=== PATIENT | female | born 1950 | race Caucasian/White ===

== ENCOUNTER 2016-10-21 16:40 | Inpatient (IN) ==
[2016-10-21] MEDS ORDERED: Naloxone 0.4 MG/ML INJ IVP PRN (17:18)
[2016-10-21] MEDS ORDERED: *HR* Metoprolol 5 MG/5 ML VIAL IVP PRN (17:18)
[2016-10-21] MEDS ORDERED: Ondansetron 4 MG/2 ML VIAL IVP PRN (17:18)
[2016-10-21] MEDS ORDERED: *HR* Promethazine 25 MG/ML VIAL IVP PRN (17:18)
[2016-10-21 18:30] LABS: Basophils % 0.3 %; Eosinophils # 0.1 K/mcL (0.0-0.6); Hematocrit 33.4 % (35.3-44.9); Hemoglobin 10.9 g/dL (11.5-15.4); Immature Granulocytes % 0.4 % (0-4); Lymphocytes # 0.9 K/mcL (0.6-4.6); Lymphocytes % 13.5 %; Mean Corpuscular HGB Conc 32.6 g/dL (31.6-35.5); Mean Corpuscular Hemoglobin 25.8 pg (28.0-33.3); Mean Corpuscular Volume 79.1 fL (83.0-100.0); Mean Platelet Volume 9.3 fL (9.4-12.4); Monocytes # 1.2 K/mcL (0.0-1.3); Neutrophils # 4.6 K/mcL (1.6-8.9); Platelet Count 287 K/mcL (140-400); Red Blood Count 4.22 M/mcL (3.82-4.97); Red Cell Distribution Width 13.8 % (11.5-14.5); Segmented Neutrophils % 67.8 %
[2016-10-21 18:37] LABS: INR 1.4; Prothrombin Time 14.8 Seconds (9.4-12.1)
[2016-10-21 18:42] LABS: Alanine Aminotransferase 20 Units/L (0-55); Albumin 2.9 g/dL (3.5-5.0); Albumin/Globulin Ratio 0.7 (1.1-2.2); Alkaline Phosphatase 98 Units/L (38-126); Aspartate Amino Transferase 31 Units/L (5-34); BUN/Creatinine Ratio 12 (6-26); Bilirubin,Direct 0.3 mg/dL (0.0-0.5); Bilirubin,Indirect 0.4 mg/dL (0.0-1.2); Bilirubin,Total 0.7 mg/dL (0.2-1.2); Blood Urea Nitrogen 9 mg/dL (7-20); Calcium 9.2 mg/dL (8.6-10.8); Carbon Dioxide 23 mEq/L (19-29); Chloride 97 mEq/L (98-109); Globulin 4.1 g/dL (2.4-3.5); Glucose 105 mg/dL (70-99); Magnesium 1.8 mg/dL (1.6-2.6); Osmolality,Calculated 273 (280-300); Phosphorous 4.1 mg/dL (2.3-4.7); Potassium 4.4 mEq/L (3.5-4.5); Sodium 132 mEq/L (136-145); eGFR For African Americans > 60 (> 60); eGFR For Non-African Americans > 60 (> 60)
[2016-10-21] MEDS: 0.9 % Sodium Chloride 1,000 ML IVC SCH (19:31)
[2016-10-21] MEDS: Piperacillin/Tazobactam 3.375 GM in D5% in Water (Mini-Bag+) 100 ML IVPB SCH (19:33)
[2016-10-21] MEDS: *HR* Morphine 2 MG/ML SYRINGE IVP PRN (21:52)
[2016-10-22] MEDS ORDERED: Piperacillin/Tazobactam 3.375 GM in D5% in Water (Mini-Bag+) 100 ML IVPB SCH
[2016-10-22] MEDS: Piperacillin/Tazobactam 3.375 GM in D5% in Water (Mini-Bag+) 100 ML IVPB SCH ×3 (05:42→17:09)
[2016-10-22] MEDS: Pantoprazole 40 MG VIAL IVP SCH (07:23)
--- NOTE | 2016-10-22 09:41 | Event Note ---
Date of Encounter: 10/22/16 Time of Encounter: 09:38 H&P completed in eCW on 10/21/16. A copy can be found at the nurses station in patient's file.
[2016-10-22] MEDS ORDERED: *HR* FentaNYL (PF) 100 MCG/2 ML VIAL IV PRN (10:00)
[2016-10-22] MEDS ORDERED: *HR* Midazolam HCl 2 MG/2 ML VIAL IV PRN (10:00)
--- NOTE | 2016-10-22 10:00 | Pre-Sedation Evaluation ---
Pre-sedation evaluation - Pre-sedation checklist Recent Vitals: Last Vital Signs Temp 98.4 F 10/22/16 07:56 Pulse 67 10/22/16 07:56 Resp 18 10/22/16 07:56 BP 110/70 10/22/16 07:56 Pulse Ox 94 L 10/22/16 07:56 Airway Assessment: Patient can open mouth completely, TMJ function normal, Micrognathia (under-bite, receding chin) absent, Neck with adequate range of motion Dentition: No loose teeth or bridges Possible difficult airway: No ASA Classification *see protocol: CLASS II-Mild systemic disease Plan of Care: Pt appropriate candidate for procedure/moderate/conscious sedation , Risks/benefits of procedure/sedation discussed w/ patient/family
[2016-10-22] MEDS ORDERED: 0.9 % Sodium Chloride 500 ML ONE (10:10)
[2016-10-22] MEDS: Metoprolol XL (24 HR) Succ 50 MG TAB.ER.24H PO SCH (11:35)
[2016-10-22] MEDS ORDERED: Polyethylene Glycol 3350 255 GM POWDER PO ONE (12:57)
--- NOTE | 2016-10-22 13:15 | General Surgery Progress Note ---
Date of Encounter: 10/22/16 Time of Encounter: 12:15 - Assessment and Plan (1) RLQ abdominal pain Current Visit: Yes Status: Acute s/p Repeat CT with rectal contrast IR drainage of intra-abdominal fluid collection IV antibiotics- Zosyn Clear liquids today and NPO after midnight Plan for bowel prep starting now and colonoscopy 10/23/[address] Carbajal Supportive care/pain control IV fluids (2) Intra-abdominal fluid collection Current Visit: Yes Status: Acute s/p IR drainage of intra-abdominal fluid collection Continue CAT drain Cultures pending IV antibiotics- Zosyn (3) Adrenal abnormality Current Visit: Yes Status: Acute enlarged and nodular left adrenal gland on CT- recommended f/u MRI (4) Hypertension Current Visit: Yes Status: Chronic Normotensive Continue home regimen Will continue to monitor and adjust as necessary Qualifiers: Hypertension type: essential hypertension Qualified Code(s): I10 - Essential (primary) hypertension (5) Hyperlipidemia Current Visit: Yes Status: Chronic Qualifiers: Hyperlipidemia type: unspecified Qualified Code(s): E78.5 - Hyperlipidemia , unspecified (6) Hypothyroidism Current Visit: Yes Status: Chronic Continue home doseage of levothyroxine Qualifiers: Hypothyroidism type: unspecified Qualified Code(s): E03.9 - Hypothyroidism , unspecified (7) DVT prophylaxis Current Visit: Yes Status: Acute Ambulate TID with assistance EPCDs to bilateral lower extremities for DVT prophylaxis Subjective Patient reports: no new complaints, feels better, still having pain, pain is less, voiding w/o difficulty, flatus, bowel movement, afebrile Objective Vital Signs - Last 8 Hours Temp Pulse Resp BP Pulse Ox 10/22/16 11:46 98.3 F 62 20 97/43 92 L 10/22/16 11:30 98 F 78 20 107/42 99 10/22/16 07:56 98.4 F 67 18 110/70 94 L Intake and Output 10/21/16 10/22/16 10/22/16 23:59 07:59 15:59 Intake Total 100 / 100 400 / 400 Output Total 500 / 500 1200 / 1200 Balance -400 / -400 -800 / -800 Intake: IV Fluids 100 / 100 100 / 100 Zosyn 3.375 GM In 100 / 100 100 / 100 Dextrose 5% (Minibag+) 100 ML 100 ML @ 25 mls/hr IVPB Q8H ZHANG Rx#: [id number] Oral 300 / 300 Output: Urine 500 / 500 1200 / 1200 Other: Meal npo # Voids 1 Weight 76.4 kg Patient Weight 10/22/16 23:59 Weight 76.4 kg - General physical appearance well developed, well nourished, no distress - Eyes normal ocular movement - ENT normal mucosa, atraumatic, normocephalic - Neck Neck exam: trachea midline - Respiratory normal expansion, normal respiratory effort, clear to auscultation - Cardiovascular Cardiovascular exam: Present: RRR - Abdomen Abdomen: Present: bowel sounds present, soft, tender (mildly ), wound (Pigtail drain with serous drainage noted) Abdominal Tenderness: RLQ - Neurologic CN 2-12 grossly intact - Musculoskeletal normal gait, normal posture - Psychiatric oriented to time, oriented to person, oriented to place, speech is normal, memory intact - Labs 10/21/16 18:13 10/21/16 18:13 Diabetes panel 10/21/16 Range/Units 18:13 Sodium 132 L (136-145) mEq/L Potassium 4.4 (3.5-4.5) mEq/L Chloride 97 L (98-109) mEq/L Carbon Dioxide 23 (19-29) mEq/L BUN 9 (7-20) mg/dL Creatinine 0.75 (0.57-1.11) mg/dL Glucose 105 H (70-99) mg/dL Calcium 9.2 (8.6-10.8) mg/dL AST 31 (5-34) Units/L ALT 20 (0-55) Units/L Alkaline Phosphatase 98 (38-126) Units/L Albumin 2.9 L (3.5-5.0) g/dL Calcium panel 10/21/16 Range/Units 18:13 Calcium 9.2 (8.6-10.8) mg/dL Phosphorus 4.1 (2.3-4.7) mg/dL Albumin 2.9 L (3.5-5.0) g/dL Pituitary panel 10/21/16 Range/Units 18:13 Sodium 132 L (136-145) mEq/L Potassium 4.4 (3.5-4.5) mEq/L Chloride 97 L (98-109) mEq/L Carbon Dioxide 23 (19-29) mEq/L BUN 9 (7-20) mg/dL Creatinine 0.75 (0.57-1.11) mg/dL Glucose 105 H (70-99) mg/dL Calcium 9.2 (8.6-10.8) mg/dL Adrenal panel 10/21/16 Range/Units 18:13 Sodium 132 L (136-145) mEq/L Potassium 4.4 (3.5-4.5) mEq/L Chloride 97 L (98-109) mEq/L Carbon Dioxide 23 (19-29) mEq/L BUN 9 (7-20) mg/dL Creatinine 0.75 (0.57-1.11) mg/dL Glucose 105 H (70-99) mg/dL Calcium 9.2 (8.6-10.8) mg/dL Total Bilirubin 0.7 (0.2-1.2) mg/dL AST 31 (5-34) Units/L ALT 20 (0-55) Units/L Alkaline Phosphatase 98 (38-126) Units/L Albumin 2.9 L (3.5-5.0) g/dL Consult Discharge Plan - Plan Referrals: Samuel Mary DO [Partnered Physician] -
[2016-10-22 14:24] LABS: Amylase 25 Units/L (25-125); Lipase 12 Units/L (8-78)
[2016-10-22] MEDS: *HR* Morphine 2 MG/ML SYRINGE IVP PRN (14:57)
[2016-10-23] MEDS: 0.9 % Sodium Chloride 1,000 ML IVC SCH ×2 (01:58→15:57)
[2016-10-23] MEDS: Piperacillin/Tazobactam 3.375 GM in D5% in Water (Mini-Bag+) 100 ML IVPB SCH ×3 (01:58→18:01)
[2016-10-23 05:14] LABS: Basophils % 0.3 %; Eosinophils % 0.5 %; Hematocrit 30.9 % (35.3-44.9); Hemoglobin 10.3 g/dL (11.5-15.4); Immature Granulocytes % 0.5 % (0-4); Lymphocytes % 17.3 %; Mean Corpuscular HGB Conc 33.3 g/dL (31.6-35.5); Mean Corpuscular Hemoglobin 26.1 pg (28.0-33.3); Mean Corpuscular Volume 78.4 fL (83.0-100.0); Mean Platelet Volume 9.5 fL (9.4-12.4); Monocytes % 14.3 %; Platelet Count 262 K/mcL (140-400); Red Blood Count 3.94 M/mcL (3.82-4.97); Red Cell Distribution Width 13.8 % (11.5-14.5); Segmented Neutrophils % 67.1 %
[2016-10-23 05:15] LABS: Lymphocytes # 1.1 K/mcL (0.6-4.6); Monocytes # 0.9 K/mcL (0.0-1.3); Neutrophils # 4.4 K/mcL (1.6-8.9)
[2016-10-23 05:35] LABS: BUN/Creatinine Ratio 7 (6-26); Calcium 8.8 mg/dL (8.6-10.8); Carbon Dioxide 25 mEq/L (19-29); Chloride 102 mEq/L (98-109); Glucose 133 mg/dL (70-99); Osmolality,Calculated 279 (280-300); Potassium 3.4 mEq/L (3.5-4.5); Sodium 135 mEq/L (136-145); eGFR For African Americans > 60 (> 60); eGFR For Non-African Americans > 60 (> 60)
[2016-10-23 05:41] LABS: Blood Urea Nitrogen 4 mg/dL (7-20)
[2016-10-23 05:43] LABS: Platelet Estimate Normal (Normal); Reactive Lymphocytes Present (Not Present)
[2016-10-23] MEDS: Pantoprazole 40 MG VIAL IVP SCH (10:28)
[2016-10-23] MEDS: Metoprolol XL (24 HR) Succ 50 MG TAB.ER.24H PO SCH (10:28)
--- NOTE | 2016-10-23 14:10 | Discharge Summary ---
Date of Encounter: 10/23/16 Time of Encounter: 14:00 - Discharge Diagnosis (1) RLQ abdominal pain Priority: Primary Status: Resolved (2) Intra-abdominal fluid collection Priority: Primary Status: Resolved (3) Adrenal abnormality Priority: Secondary Status: Chronic (4) Hypertension Priority: Secondary Status: Chronic Qualifiers: Hypertension type: essential hypertension Qualified Code(s): I10 - Essential (primary) hypertension (5) Hyperlipidemia Priority: Secondary Status: Chronic Qualifiers: Hyperlipidemia type: unspecified Qualified Code(s): E78.5 - Hyperlipidemia , unspecified (6) Hypothyroidism Priority: Secondary Status: Chronic Qualifiers: Hypothyroidism type: unspecified Qualified Code(s): E03.9 - Hypothyroidism , unspecified (7) DVT prophylaxis Priority: Secondary Status: Acute - Discharge Medications Home Medications: Levothyroxine [Synthroid] 88 mcg PO DAILY 10/21/16 [History] Losartan Potassium [Cozaar] 50 mg PO DAILY 10/21/16 [History] Metoprolol Succinate 100 mg PO DAILY 10/21/16 [History] Simvastatin [Zocor] 40 mg PO HS 10/21/16 [History] Allergies/Adverse Reactions: Allergies Sulfa (Sulfonamide Antibiotics) Allergy (Verified 10/21/16 18:29) Swelling of Lip/Tongue/Throat General Surgery Exam Initial Vital Signs Temp Pulse Resp BP Pulse Ox 99.4 F 71 14 108/62 98 10/21/16 19:39 10/21/16 19:39 10/21/16 19:39 10/21/16 19:39 10/21/16 19:39 - General physical appearance well developed, well nourished, no distress, no pain - Eyes normal ocular movement - ENT normal mucosa, atraumatic, normocephalic - Neck trachea midline - Respiratory normal expansion, normal respiratory effort, clear to auscultation - Cardiovascular Cardiovascular exam: Present: RRR, 15, 16 - Abdomen Abdomen general surgery: Present: bowel sounds present, soft, non tender, wound (Pigtail drain with serous drainage noted) - Neurologic Present: CN 2-12 grossly intact - Musculoskeletal Present: normal gait, normal posture - Psychiatric Psychiatric general surgery: Present: appropriate, oriented to person, oriented to place, oriented to time, speech is normal, memory intact Date of admission: 10/22/16 10:18 Primary care physician: Samuel Mary DO Consults: 10/21/16 17:21 Consult to Interventional Radiology [CONS] Routine Consulting Provider: Radiology Interventional Cols Reason for Consult: intra-abdominal abscesses Call Completed: No Discharging clinician: Tracie Carbajal ([facility]) Anticipated date of discharge: 10/24/16 - Patient Status Disposition: Home, Self-Care Condition: Good Functional capacity at discharge: independent ambulation Overall status at discharge: patient is progressing back to baseline - Discharge Instructions Follow Up With: Tracie Carbajal MD [Partnered Physician] - 11/04/16 1:50 pm (hospital follow- up) Samuel Mary DO [Primary Care Provider] - (1-2 weeks; patient will need follow-up MRI to further evaluate the left adrenal gland) Additional Instructions: 1 Pigtail drain- cleanse around drain with soap and water, pat dry daily; apply split 4X4 gauze and tape to secure daily. Empty drain 2 times daily and as needed if full and record outputs (ml/cc) and bring drain record to follow-up appointment on 11/04/[address] Carbajal 2 February shower, no tub bath - Diet and Activity Activity: increase activity as tolerated Diet: advance to your usual diet - Hospital Course Hospital course: Ms. Strickland is a 66 year old female direct admitted from the outpatient surgical office for RLQ pain. CT scan showed evidence of an intra-abdominal fluid collection. Interventional radiology was consulted for IR drainage of the fluid. The fluid was sent for culture. The patient was placed on empiric IV antibiotics (Zosyn). Her symptoms have significantly improved with drainage of the fluid collection (serous drainage noted). The patient was prepped for a colonoscopy for further evaluation of the colon. We will advance the patients diet as tolerated as colonoscopy complete. Cultures showed no growth from the intra-abdominal fluid. Plan for discharge to home with drain in place likely in the next 24 hours. Plan for outpatient follow-up with Dr. Carbajal in the next 10- 14 days. - Time Spent with Patient Total time spent providing and/or coordinating discharge services: Less than 30 minutes Labs on day of discharge: Labs from last 24 hours 10/23/16 10/23/16 10/23/16 11:32 05:44 04:30 WBC RBC Hgb Hct MCV MCH MCHC RDW Plt Count MPV Immature Gran % Seg Neutrophils % Lymphocytes % Monocytes % Eosinophils % Basophils % Neutrophils # Lymphocytes # Monocytes # Eosinophils # Basophils # Reactive Lymphocytes Platelet Estimate Sodium 135 L Potassium 3.4 L D Chloride 102 Carbon Dioxide 25 BUN 4 L Creatinine 0.59 Est GFR ( Amer) > 60 Est GFR (Non-Af Amer) > 60 BUN/Creatinine Ratio 7 Glucose 133 H POC Glucose 107 H 128 H Calculated Osmolality 279 L Calcium 8.8 Amylase Lipase Fluid Amylase Fluid Creatinine Miscellaneous Test 10/23/16 10/22/16 10/22/16 04:30 23:53 13:56 WBC 6.6 RBC 3.94 Hgb 10.3 L Hct 30.9 L MCV 78.4 L MCH 26.1 L MCHC 33.3 RDW 13.8 Plt Count 262 MPV 9.5 Immature Gran % 0.5 Seg Neutrophils % 67.1 Lymphocytes % 17.3 Monocytes % 14.3 Eosinophils % 0.5 Basophils % 0.3 Neutrophils # 4.4 Lymphocytes # 1.1 Monocytes # 0.9 Eosinophils # 0.0 Basophils # 0.0 Reactive Lymphocytes Present A Platelet Estimate Normal Sodium Potassium Chloride Carbon Dioxide BUN Creatinine Est GFR ( Amer) Est GFR (Non-Af Amer) BUN/Creatinine Ratio Glucose POC Glucose 192 H Calculated Osmolality Calcium Amylase 25 Lipase 12 Fluid Amylase Fluid Creatinine Miscellaneous Test 10/22/16 10/22/16 10/22/16 10:35 10:35 10:35 WBC RBC Hgb Hct MCV MCH MCHC RDW Plt Count MPV Immature Gran % Seg Neutrophils % Lymphocytes % Monocytes % Eosinophils % Basophils % Neutrophils # Lymphocytes # Monocytes # Eosinophils # Basophils # Reactive Lymphocytes Platelet Estimate Sodium Potassium Chloride Carbon Dioxide BUN Creatinine Est GFR ( Amer) Est GFR (Non-Af Amer) BUN/Creatinine Ratio Glucose POC Glucose Calculated Osmolality Calcium Amylase Lipase Fluid Amylase 28 Fluid Creatinine 0.60 Miscellaneous Test 20 Preliminary micro results at discharge 10/22/16 10:35 Wound Culture - Preliminary Abdomen No growth. 10/22/16 10:35 Gram Stain - Preliminary Abdomen - Impressions ITS Impressions Abdomen/Pelvis CT 10/22/16 17:20 IMPRESSION: Thickening of the ascending colon which may be inflammatory or neoplastic in etiology. Negative for extravasation of the rectal contrast. Multiloculated fluid collection anterior to the right richard colon with soft tissue stranding suspicious for abscess Enlarged left adrenal gland which has a nodular appearance. MRI the adrenal glands is recommended for further evaluation. D/ / Jose Trejo MD / Jose Trejo MD Interpreting Provider: Jose Trejo MD Retroperitoneal Abscess Drainage 10/22/16 17:24 IMPRESSION: Successful CT guided placement of peritoneal abscess drainage catheter. D/ / Jose Trejo MD / Jose Trejo MD Interpreting Provider: Jose Trejo MD - Attending Attestation I examined this patient and my medical decision-making was reviewed with the CHIEF COMPLIANCE OFFICER/PA/Advanced Practice Nurse/Resident Physician. I agree with the documented findings, disposition and treatment plan as described except to the extent set forth below.
[2016-10-23] MEDS ORDERED: *HR* Midazolam HCl 5 MG/5 ML VIAL IVP ONE ×2 (15:58→16:27)
[2016-10-23] MEDS ORDERED: *HR* FentaNYL (PF) 100 MCG/2 ML VIAL ONE ×2 (15:58→16:27)
[2016-10-23] MEDS ORDERED: *HR* Promethazine 25 MG/ML VIAL IVP ONE (16:00)
[2016-10-23] MEDS ORDERED: Simethicone 40 MG/0.6 ML MLS IR ONE (16:00)
[2016-10-23] MEDS ORDERED: *HR* Promethazine 25 MG/ML VIAL ONE (16:00)
[2016-10-23] MEDS: *HR* Midazolam HCl 5 MG/5 ML VIAL IVP PRN ×5 (16:07→16:43)
[2016-10-23] MEDS: *HR* FentaNYL (PF) 100 MCG/2 ML VIAL IVP PRN ×5 (16:07→16:45)
[2016-10-24] MEDS: Piperacillin/Tazobactam 3.375 GM in D5% in Water (Mini-Bag+) 100 ML IVPB SCH ×3 (02:07→18:40)
[2016-10-24] MEDS: 0.9 % Sodium Chloride 1,000 ML IVC SCH ×2 (02:10→15:43)
[2016-10-24 07:13] LABS: Basophils % 0.5 %; Eosinophils # 0.1 K/mcL (0.0-0.6); Eosinophils % 1.9 %; Hematocrit 30.5 % (35.3-44.9); Hemoglobin 9.7 g/dL (11.5-15.4); Immature Granulocytes % 0.3 % (0-4); Lymphocytes # 1.3 K/mcL (0.6-4.6); Lymphocytes % 21.5 %; Mean Corpuscular HGB Conc 31.8 g/dL (31.6-35.5); Mean Corpuscular Hemoglobin 25.5 pg (28.0-33.3); Mean Corpuscular Volume 80.3 fL (83.0-100.0); Mean Platelet Volume 9.2 fL (9.4-12.4); Monocytes # 0.7 K/mcL (0.0-1.3); Monocytes % 11.8 %; Neutrophils # 3.8 K/mcL (1.6-8.9); Platelet Count 276 K/mcL (140-400); Red Cell Distribution Width 14.1 % (11.5-14.5)
[2016-10-24 07:25] LABS: BUN/Creatinine Ratio 7 (6-26); Calcium 8.5 mg/dL (8.6-10.8); Carbon Dioxide 23 mEq/L (19-29); Chloride 106 mEq/L (98-109); Glucose 92 mg/dL (70-99); Osmolality,Calculated 287 (280-300); Potassium 3.5 mEq/L (3.5-4.5); Sodium 140 mEq/L (136-145); eGFR For African Americans > 60 (> 60); eGFR For Non-African Americans > 60 (> 60)
[2016-10-24 07:27] LABS: Blood Urea Nitrogen 4 mg/dL (7-20)
[2016-10-24] MEDS: Metoprolol XL (24 HR) Succ 50 MG TAB.ER.24H PO SCH (07:46)
[2016-10-24] MEDS: Pantoprazole 40 MG VIAL IVP SCH (07:46)
--- NOTE | 2016-10-24 10:24 | General Surgery Progress Note ---
Date of Encounter: 10/24/16 Time of Encounter: 08:40 - Assessment and Plan (1) Colonic mass Current Visit: Yes Status: Acute Right near-obstructing colon mass found on colonoscopy by Dr. Carbajal on 10/23/16. Continue clear liquid diet. Plan for right colectomy on Wednesday. Repeat labs in AM. IV fluids. Supportive care/pain control. (2) RLQ abdominal pain Current Visit: Yes Status: Resolved s/p Repeat CT with rectal contrast IR drainage of intra-abdominal fluid collection- preliminary culture and gram stain negative. Right colonic mass found during colonoscopy, plan for right colectomy Wednesday. IV antibiotics- Zosyn Continue clear liquids. Supportive care/pain control IV fluids (3) Intra-abdominal fluid collection Current Visit: Yes Status: Resolved s/p IR drainage of intra-abdominal fluid collection Continue CAT drain Cultures pending, preliminary culture and gram stain negative. IV antibiotics- Zosyn (4) Adrenal abnormality Current Visit: Yes Status: Chronic enlarged and nodular left adrenal gland on CT- recommended f/u MRI (5) Hypertension Current Visit: Yes Status: Chronic Normotensive Continue home regimen Will continue to monitor and adjust as necessary Qualifiers: Hypertension type: essential hypertension Qualified Code(s): I10 - Essential (primary) hypertension (6) Hyperlipidemia Current Visit: Yes Status: Chronic Qualifiers: Hyperlipidemia type: unspecified Qualified Code(s): E78.5 - Hyperlipidemia , unspecified (7) Hypothyroidism Current Visit: Yes Status: Chronic Continue home dosage of levothyroxine Qualifiers: Hypothyroidism type: unspecified Qualified Code(s): E03.9 - Hypothyroidism , unspecified (8) DVT prophylaxis Current Visit: Yes Status: Acute Ambulate TID with assistance EPCDs to bilateral lower extremities for DVT prophylaxis Subjective Patient reports: no new complaints, feels better, pain is less (states only tender around pigtain drain.), tolerating liquids well, flatus, no bowel movement, afebrile Objective Vital Signs - Last 8 Hours Temp Pulse Resp BP Pulse Ox 10/24/16 08:00 97.6 F 62 16 135/76 96 10/24/16 04:05 97.7 F 60 15 111/66 94 L Intake and Output 10/23/16 10/24/16 10/24/16 23:59 07:59 15:59 Intake Total 400 / 400 933 / 933 600 / 600 Output Total 350 / 350 155 / 155 200 / 200 Balance 50 / 50 778 / 778 400 / 400 Intake: IV Fluids 400 / 400 933 / 933 0.9 % Sodium Chloride 1, 200 / 200 833 / 833 000 ML @ 40 mls/hr IVC . Q24H ZHANG Rx#:[id number] Zosyn 3.375 GM In 200 / 200 100 / 100 Dextrose 5% (Minibag+) 100 ML 100 ML @ 25 mls/hr IVPB Q8H ZHANG Rx#: [id number] Oral 0 / 0 600 / 600 Output: Urine 350 / 350 150 / 150 200 / 200 Wound Drainage 0 / 0 5 / 5 RLQ 0 / 0 5 / 5 Other: Meal Dinner Percent of Meal Consumed 0% # Voids 2 Weight 75.46 kg Blood Glucose* 88 96 Patient Weight 10/24/16 23:59 Weight 75.46 kg - General physical appearance well developed, well nourished, no distress - Eyes normal ocular movement - ENT normal mucosa, no congestion, atraumatic, normocephalic - Neck Neck exam: trachea midline - Respiratory normal respiratory effort, clear to auscultation - Cardiovascular Cardiovascular exam: Present: RRR, murmurs (holosystolic 3+) - Abdomen Abdomen: Present: bowel sounds present, soft, tender (expected post-op), wound ( pigtail drain to the RLQ) - Integumentary no rash - Neurologic CN 2-12 grossly intact - Psychiatric oriented to time, oriented to person, oriented to place, speech is normal, memory intact - Labs 10/24/16 07:05 10/24/16 07:05 Diabetes panel 10/24/16 Range/Units 07:05 Sodium 140 (136-145) mEq/L Potassium 3.5 (3.5-4.5) mEq/L Chloride 106 (98-109) mEq/L Carbon Dioxide 23 (19-29) mEq/L BUN 4 L (7-20) mg/dL Creatinine 0.56 L (0.57-1.11) mg/dL Glucose 92 (70-99) mg/dL Calcium 8.5 L (8.6-10.8) mg/dL Calcium panel 10/24/16 Range/Units 07:05 Calcium 8.5 L (8.6-10.8) mg/dL Pituitary panel 10/24/16 Range/Units 07:05 Sodium 140 (136-145) mEq/L Potassium 3.5 (3.5-4.5) mEq/L Chloride 106 (98-109) mEq/L Carbon Dioxide 23 (19-29) mEq/L BUN 4 L (7-20) mg/dL Creatinine 0.56 L (0.57-1.11) mg/dL Glucose 92 (70-99) mg/dL Calcium 8.5 L (8.6-10.8) mg/dL Adrenal panel 10/24/16 Range/Units 07:05 Sodium 140 (136-145) mEq/L Potassium 3.5 (3.5-4.5) mEq/L Chloride 106 (98-109) mEq/L Carbon Dioxide 23 (19-29) mEq/L BUN 4 L (7-20) mg/dL Creatinine 0.56 L (0.57-1.11) mg/dL Glucose 92 (70-99) mg/dL Calcium 8.5 L (8.6-10.8) mg/dL - VTE Documentation of Mechanical Device: Intermittent pneumatic compression device Consult Discharge Plan - Plan Additional Instructions: 1 Pigtail drain- cleanse around drain with soap and water, pat dry daily; apply split 4X4 gauze and tape to secure daily. Empty drain 2 times daily and as needed if full and record outputs (ml/cc) and bring drain record to follow-up appointment on 11/04/[address] Carbajal 2 February shower, no tub bath Referrals: Tracie Carbajal MD [Partnered Physician] - 11/04/16 1:50 pm (hospital follow- up) Samuel Mary DO [Primary Care Provider] - (1-2 weeks; patient will need follow-up MRI to further evaluate the left adrenal gland)
[2016-10-25] MEDS: Piperacillin/Tazobactam 3.375 GM in D5% in Water (Mini-Bag+) 100 ML IVPB SCH ×3 (03:51→18:19)
[2016-10-25] MEDS: Metoprolol XL (24 HR) Succ 50 MG TAB.ER.24H PO SCH (08:45)
[2016-10-25] MEDS: Pantoprazole 40 MG VIAL IVP SCH (08:45)
--- NOTE | 2016-10-25 14:14 | General Surgery Progress Note ---
Date of Encounter: 10/25/16 Time of Encounter: 08:20 - Assessment and Plan (1) Colonic mass Current Visit: Yes Status: Acute Right near-obstructing colon mass found on colonoscopy by Dr. Carbajal on 10/23/16. Plan for right colectomy on Wednesday. NPO starting at midnight, will then start IV fluids 40cc/hr. Repeat labs in AM, with type and screen Supportive care/pain control. (2) RLQ abdominal pain Current Visit: Yes Status: Resolved s/p Repeat CT with rectal contrast IR drainage of intra-abdominal fluid collection- preliminary culture and gram stain negative. Right colonic mass found during colonoscopy, plan for right colectomy Wednesday. IV antibiotics- Zosyn Continue clear liquids, plan for NPO at midnight. IV fluids while NPO Supportive care/pain control (3) Intra-abdominal fluid collection Current Visit: Yes Status: Resolved s/p IR drainage of intra-abdominal fluid collection Continue CAT drain, no noted output today. Cultures pending, preliminary culture and gram stain negative. IV antibiotics- Zosyn (4) Adrenal abnormality Current Visit: Yes Status: Chronic enlarged and nodular left adrenal gland on CT- recommended f/u MRI (5) Hypertension Current Visit: Yes Status: Chronic Normotensive Continue home regimen Will continue to monitor and adjust as necessary Qualifiers: Hypertension type: essential hypertension Qualified Code(s): I10 - Essential (primary) hypertension (6) Hyperlipidemia Current Visit: Yes Status: Chronic Qualifiers: Hyperlipidemia type: unspecified Qualified Code(s): E78.5 - Hyperlipidemia , unspecified (7) Hypothyroidism Current Visit: Yes Status: Chronic Continue home dosage of levothyroxine Qualifiers: Hypothyroidism type: unspecified Qualified Code(s): E03.9 - Hypothyroidism , unspecified (8) DVT prophylaxis Current Visit: Yes Status: Acute Ambulate TID with assistance EPCDs to bilateral lower extremities for DVT prophylaxis Subjective Patient reports: no new complaints, feels better, tolerating liquids well, voiding w/o difficulty, flatus, bowel movement, afebrile Objective Vital Signs - Last 8 Hours Temp Pulse Resp BP Pulse Ox 10/25/16 12:23 97.8 F 64 16 128/76 97 10/25/16 07:11 97.9 F 61 18 115/70 94 L Intake and Output 10/24/16 10/25/16 10/25/16 23:59 07:59 15:59 Intake Total 680 / 680 920 / 920 580 / 580 Output Total 1050 / 1050 750 / 750 0 / 0 Balance -370 / -370 170 / 170 580 / 580 Intake: IV Fluids 200 / 200 100 / 100 Zosyn 3.375 GM In 200 / 200 100 / 100 Dextrose 5% (Minibag+) 100 ML 100 ML @ 25 mls/hr IVPB Q8H ZHANG Rx#: [id number] Oral 480 / 480 920 / 920 480 / 480 Output: Urine 1050 / 1050 750 / 750 Wound Drainage 0 / 0 0 / 0 0 / 0 RLQ 0 / 0 0 / 0 0 / 0 Other: Meal Dinner Breakfast Stool Size Large Stool Consistency loose formed Stool Color Brown # Voids 1 - General physical appearance well developed, well nourished, no distress - Eyes normal ocular movement - ENT normal mucosa, atraumatic, normocephalic - Neck Neck exam: trachea midline - Respiratory normal respiratory effort, clear to auscultation - Cardiovascular Cardiovascular exam: Present: RRR, murmurs (3+ holosystolic) - Abdomen Abdomen: Present: bowel sounds present, soft, tender (expected post operative tenderness), wound (pigtail drain to the RLQ (10ml drainage noted in past 24hrs) .) - Integumentary no rash - Neurologic CN 2-12 grossly intact - Musculoskeletal normal posture - Psychiatric oriented to time - Labs 10/24/16 07:05 10/24/16 07:05 - VTE Documentation of Mechanical Device: Graduated compression elastic hosiery Consult Discharge Plan - Plan Additional Instructions: 1 Pigtail drain- cleanse around drain with soap and water, pat dry daily; apply split 4X4 gauze and tape to secure daily. Empty drain 2 times daily and as needed if full and record outputs (ml/cc) and bring drain record to follow-up appointment on 11/04/[address] Carbajal 2 February shower, no tub bath Referrals: Tracie Carbajal MD [Partnered Physician] - 11/04/16 1:50 pm (hospital follow- up) Samuel Mary DO [Primary Care Provider] - (1-2 weeks; patient will need follow-up MRI to further evaluate the left adrenal gland)
[2016-10-26] MEDS ORDERED: 0.9 % Sodium Chloride 1,000 ML IVC SCH (00:01)
[2016-10-26 03:14] LABS: Basophils % 0.5 %; Eosinophils # 0.1 K/mcL (0.0-0.6); Eosinophils % 2.5 %; Hematocrit 30.9 % (35.3-44.9); Hemoglobin 9.9 g/dL (11.5-15.4); Immature Granulocytes % 0.4 % (0-4); Lymphocytes # 1.4 K/mcL (0.6-4.6); Lymphocytes % 24.9 %; Mean Corpuscular Hemoglobin 25.3 pg (28.0-33.3); Mean Platelet Volume 9.3 fL (9.4-12.4); Monocytes # 0.6 K/mcL (0.0-1.3); Monocytes % 11.2 %; Neutrophils # 3.4 K/mcL (1.6-8.9); Platelet Count 340 K/mcL (140-400); Red Blood Count 3.91 M/mcL (3.82-4.97); Segmented Neutrophils % 60.5 %
[2016-10-26 03:27] LABS: BUN/Creatinine Ratio 4 (6-26); Calcium 8.8 mg/dL (8.6-10.8); Carbon Dioxide 25 mEq/L (19-29); Chloride 105 mEq/L (98-109); Glucose 94 mg/dL (70-99); Osmolality,Calculated 286 (280-300); Potassium 3.1 mEq/L (3.5-4.5); Sodium 140 mEq/L (136-145); eGFR For African Americans > 60 (> 60); eGFR For Non-African Americans > 60 (> 60)
[2016-10-26 03:29] LABS: Blood Urea Nitrogen 2 mg/dL (7-20)
[2016-10-26 03:34] LABS: Platelet Estimate Normal (Normal)
[2016-10-26 03:37] LABS: Reactive Lymphocytes Present (Not Present)
[2016-10-26 03:38] LABS: Large Platelets Present (Not Present)
[2016-10-26] MEDS: Piperacillin/Tazobactam 3.375 GM in D5% in Water (Mini-Bag+) 100 ML IVPB SCH ×2 (03:44→10:47)
[2016-10-26] MEDS ORDERED: Potassium Chloride 40 MEQ, Lidocaine 1% 2 ML in D5% in Water 500 ML IVPB ONE ×2 (09:11→12:55)
[2016-10-26] MEDS: Metoprolol XL (24 HR) Succ 50 MG TAB.ER.24H PO SCH (10:11)
[2016-10-26] MEDS: Pantoprazole 40 MG VIAL IVP SCH (10:12)
[2016-10-26 12:26] LABS: Magnesium 1.8 mg/dL (1.6-2.6); Phosphorous 4.4 mg/dL (2.3-4.7)
--- NOTE | 2016-10-26 12:30 | Anesthesia Evaluation PreOp ---
Date of Encounter: 10/26/16 Time of Encounter: 12:28 - Past History Planned Operation: open right colectomy Cardiac History: HTN, Hyperlipidemia Pulmonary History: Snore ASSOCIATE PROFESSOR OF RADIOLOGY History: Other (carotid 3/16, min plaque bilat) Other Medical History: Thyroid, Other (enlarged l adrenal) Anesthesia History: No Prior Anesthetic Complications, Past Anesthesia Alcohol Use: none Drug use: none Medications and Allergies Levothyroxine [Synthroid] 88 mcg PO DAILY 10/21/16 [History] Losartan Potassium [Cozaar] 50 mg PO DAILY 10/21/16 [History] Metoprolol Succinate 100 mg PO DAILY 10/21/16 [History] Simvastatin [Zocor] 40 mg PO HS 10/21/16 [History] Allergies Sulfa (Sulfonamide Antibiotics) Allergy (Verified 10/21/16 18:29) Swelling of Lip/Tongue/Throat - Meds/Allergy Pre-op Review Medications Reviewed: Yes Allergies Reviewed: Yes Beta Blockers on Current Med List: Yes If Beta Blockers taken, Date/Time (Last Dose taken): metoprolol at 10:11 Anesthesia Results - Labs 10/26/16 02:41 10/26/16 02:41 - Imaging EKG: pending Additional studies: CT abd, thickening ascending colon, enlarged/nodular l adrenal Anesthesia Exam Vital Signs/O2 Sat/Glucose, Most Current Temp Pulse Resp BP Pulse Ox 10/26/16 10:37 98 F 64 16 135/74 95 Height: 1.57 Weight: 75 NPO (# of Hours): >8 - HEENT Pupil (Motor): Pupils equal, EOMI Mallampati: II Teeth: Normal Oral Opening: Greater than 3 - ASSOCIATE PROFESSOR OF RADIOLOGY LOC: Oriented ASSOCIATE PROFESSOR OF RADIOLOGY Motor: Normal RUE, Normal LUE, Normal RLE, Normal LLE, Normal Face ASSOCIATE PROFESSOR OF RADIOLOGY Sensory: Normal: RUE, LUE, RLE, LLE, Face - Cardiac Rhythm: Regular Murmur: None - Pulmonary Breath Sounds: bilateral Clear Respiratory Effort: Symmetrical Anesthesia Assess/Plan ASA Score: 3 (cancer?) Modified Treasure Scale for Level of Consciousness: Cooperative, oriented, and tranquil Anesthetic Plan: General Monitoring Plan: Standard Monitors Recovery Plan: PACU
[2016-10-26] MEDS ORDERED: Ringers Solution, Lactated 1,000 ML IVC SCH (12:45)
[2016-10-26] MEDS ORDERED: *HR* Midazolam HCl 2 MG/2 ML VIAL ONE (14:38)
[2016-10-26] MEDS ORDERED: *HR* Propofol 200 MG/20 ML VIAL IVP ONE (14:38)
[2016-10-26] MEDS ORDERED: Ondansetron 4 MG/2 ML VIAL ONE (14:38)
[2016-10-26] MEDS ORDERED: *HR* FentaNYL (PF) 100 MCG/2 ML VIAL ONE ×2 (14:38→14:44)
[2016-10-26] MEDS ORDERED: *HR* Rocuronium Bromide 50 MG/5 ML VIAL ONE (14:38)
[2016-10-26] MEDS ORDERED: *HR* Promethazine 25 MG/ML VIAL IVP PRN ×2 (16:37→18:37)
[2016-10-26] MEDS ORDERED: Albuterol 2.5 MG/3 ML NEBULIZER IH PRN (16:37)
[2016-10-26] MEDS ORDERED: EPHEDrine 50 MG/ML VIAL ONE (16:51)
--- NOTE | 2016-10-26 17:28 | Operative Note ---
Date of procedure: 10/26/16 Pre-op diagnosis: Right colon mass Post-op diagnosis: same Procedure: Open right colectomy Complications: none immediate Anesthesia: CHRISTINE Surgeon: Tracie Carbajal Tennis Net Maker: Shakila Whiteside Estimated blood loss (cc): 100 IV fluids (cc): 1,500 Urine output (cc): 600 Specimen: right colon Condition: stable Disposition: PACU Procedure in Detail: Patient was brought to the operating suite and placed supine on the operating table. Sign in was performed and everyone was in agreement. Anesthesia was induced and patient was endotracheally intubated by anesthesia without incident. Anesthesia also placed a NG tube. The circulating nurse placed a Marc catheter. The abdomen was prepped and draped in the usual sterile fashion. Timeout was performed again everyone was in agreement. A midline incision through the skin and the subcutaneous tissue was made with a 15 blade. We dissected through the subcutaneous tissue and the anterior abdominal wall linea alba fascia with the Bovie. Elizabeth's were placed on either side of the fascia for retraction and the abdomen was entered with the Bovie and bluntly. The Bookwalter was placed for retraction. The small bowel was grasped and run down to the terminal ileum. The cecum was soft and compliant but the middle and distal right colon was extremely firm, enlarged, and densely adherent to the right abdominal wall. Beginning at the white line of Toldt at the cecum an opening in the retroperitoneum was made with the Bovie. We carried opening in the peritoneum down around the cecum to the ileum mesentery. Using gentle blunt dissection the right colon was bluntly dissected off the abdominal wall. Due to the densely adherent nature and the friability of the right colon during dissection the colon perforated. Liquid stool then leaked from the colon which given the nature of the friability is not a completely unexpected event. It is questionable whether the tumor had perforated the colon wall. A noncrushing bowel clamp was placed at the terminal ileum. The omentum was elevated at the middle of the transverse colon and the middle colic vessels were located. The omentum was split with the impact LigaSure at the same level of the middle colic vessels down to the transverse colon. The proximal transverse colon omentum was taken down off the right upper quadrant abdominal wall with the Bovie and gentle blunt dissection, as well as off the stomach. The duodenum was located during the dissection of the hepatic flexure and kept out of harm's way. The right ureter was located. Once the distal terminal ileum right colon and hepatic flexure were elevated off the abdominal wall and opening in the mesentery just distal to the right middle colic vessel was made with the Bovie. The transverse colon was transected with a linear MIGUE 75 stapler with a blue load. The mesentery was elevated and the mesentery was scored with the Bovie down to the takeoff of the right colic vessels. The right colic artery was dissected out with a right angle and Nanci's were placed proximally and distally , the vessel was transected with Metzenbaum scissors. The proximal right colic vessel was ligated with an 0 silk stitch at its takeoff. An opening in the terminal ileum mesentery was made with the Bovie. The terminal ileum several centimeters proximal to the ileocecal valve was transected with a linear MIGUE-75 stapler using a blue load. And the mesentery was dissected with an impact LigaSure. Once the specimen was free was placed off to the back table for pathology. The abdomen was copiously irrigated with sterile saline. A terminal ileum to middle transverse colon [id number] anastomosis was constructed first with the linear MIGUE-75 stapler and then a TA 60 stapler. A 3- 0 silk stitch was placed at the crotch of the anastomosis. The end of the anastomosis was Lemberted with 3-0 silk stitches. The mesentery was reapproximated with a 2-0 silk running stitch. The abdomen was copiously irrigated with sterile saline again. The omentum was wrapped around the anastomosis in the right lower quadrant. Medium clips were placed along the right abdominal wall where the colon was densely adherent in case there was positive tumor perforation and the need for radiation. The midline incision at the fascia was closed with 2 separate non-looped #1 PDS running stitches meeting in the middle. The subcutaneous tissue was copiously irrigated with sterile saline. The subcutaneous tissue was reapproximated with 3-0 Vicryl interrupted stitches. The skin was closed with sunny. All lap and instrument counts are correct at end of the case. The patient tolerated the procedure well and was awoken in the operating suite and extubated by anesthesia without incident. The Marc catheter and NG tube remained patient.
[2016-10-26] MEDS: *HR* HYDROmorphone (PF) 1 MG/ML SYRINGE IVP PRN ×4 (17:30→17:54)
--- NOTE | 2016-10-26 17:48 | Electrocardiograph Report ---
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
[2016-10-26] MEDS ORDERED: Ketorolac 30 MG/ML VIAL IVP ONE (17:52)
--- NOTE | 2016-10-26 18:14 | Anesthesia Evaluation Post Op ---
Date of Encounter: 10/26/16 Time of Encounter: 18:14 - Vital Signs Vital Signs: Vital Signs/O2 Sat/Glucose, Most Current Temp Pulse Resp BP Pulse Ox 10/26/16 18:09 69 16 128/75 96 10/26/16 17:59 55 16 135/75 97 10/26/16 17:49 97.1 F L 58 16 129/61 97 10/26/16 17:39 56 16 122/71 97 10/26/16 17:29 58 16 130/64 96 10/26/16 17:19 97.1 F L 64 16 140/69 93 L - Lungs Lungs: Clear Ascult./Percussion - Airway Airway: Non-obstructed - Cardiovascular Regular Rate - Mental Status Mental Status: Alert & Oriented, Answers Appropriately, Asleep with brisk response to light stimulation - Pain Pain Scale: 3 - Nausea Vomiting Nausea Vomiting: Not Present - Hydration Hydration: NPO - Discharge PostOp Status: Transfer Patient to floor
[2016-10-26] MEDS ORDERED: Ondansetron 4 MG/2 ML VIAL IVP PRN (18:37)
[2016-10-26] MEDS ORDERED: Naloxone 0.4 MG/ML INJ IVP PRN (18:37)
[2016-10-26] MEDS ORDERED: *HR* HYDROmorphone 20 MG/20 ML PCA IVC PRN (18:37)
[2016-10-26] MEDS ORDERED: Chloraseptic Spray 177 ML BOTTLE MM PRN (18:37)
[2016-10-26] MEDS: *HR* Heparin 5,000 UNIT/ML VIAL SQ SCH (22:49)
[2016-10-26] MEDS: 0.9 % Sodium Chloride 1,000 ML IVC SCH (23:16)
[2016-10-26] MEDS: Acetaminophen IV 1,000 MG/100 ML INFUS..BTL IVPB SCH (23:17)
[2016-10-26] MEDS: *HR* Metoprolol 5 MG/5 ML VIAL IVP SCH (23:17)
[2016-10-27] MEDS: Piperacillin/Tazobactam 3.375 GM in D5% in Water (Mini-Bag+) 100 ML IVPB SCH ×3 (03:32→18:38)
[2016-10-27] MEDS: *HR* Metoprolol 5 MG/5 ML VIAL IVP SCH ×3 (06:27→18:36)
[2016-10-27 08:15] LABS: Basophils % 0.1 %; Hematocrit 32.6 % (35.3-44.9); Hemoglobin 10.4 g/dL (11.5-15.4); Immature Granulocytes % 0.2 % (0-4); Lymphocytes # 0.7 K/mcL (0.6-4.6); Lymphocytes % 5.9 %; Mean Corpuscular HGB Conc 31.9 g/dL (31.6-35.5); Mean Corpuscular Hemoglobin 25.9 pg (28.0-33.3); Mean Corpuscular Volume 81.1 fL (83.0-100.0); Mean Platelet Volume 9.2 fL (9.4-12.4); Monocytes # 0.7 K/mcL (0.0-1.3); Monocytes % 5.5 %; Neutrophils # 11.1 K/mcL (1.6-8.9); Platelet Count 375 K/mcL (140-400); Red Blood Count 4.02 M/mcL (3.82-4.97); Red Cell Distribution Width 14.3 % (11.5-14.5); Segmented Neutrophils % 88.3 %
[2016-10-27 08:30] LABS: BUN/Creatinine Ratio 10 (6-26); Blood Urea Nitrogen 6 mg/dL (7-20); Calcium 8.8 mg/dL (8.6-10.8); Carbon Dioxide 24 mEq/L (19-29); Chloride 107 mEq/L (98-109); Glucose 173 mg/dL (70-99); Magnesium 1.5 mg/dL (1.6-2.6); Osmolality,Calculated 294 (280-300); Phosphorous 4.9 mg/dL (2.3-4.7); Potassium 4.1 mEq/L (3.5-4.5); Sodium 141 mEq/L (136-145); eGFR For African Americans > 60 (> 60); eGFR For Non-African Americans > 60 (> 60)
[2016-10-27] MEDS ORDERED: Magnesium Sulfate 2 GM in D5% in Water 100 ML IVPB ONE (08:32)
[2016-10-27] MEDS: Levothyroxine Sodium 100 MCG VIAL IVP SCH (08:58)
[2016-10-27] MEDS: *HR* Heparin 5,000 UNIT/ML VIAL SQ SCH ×2 (08:59→18:39)
[2016-10-27] MEDS: Pantoprazole 40 MG VIAL IVP SCH (08:59)
[2016-10-27] MEDS: 0.9 % Sodium Chloride 1,000 ML IVC SCH ×2 (10:45→21:52)
[2016-10-27] MEDS: Acetaminophen IV 1,000 MG/100 ML INFUS..BTL IVPB SCH ×2 (10:53→16:06)
--- NOTE | 2016-10-27 11:30 | General Surgery Progress Note ---
<Peach,Saira Bernarda - Last Filed: 10/27/16 11:34> Date of Encounter: 10/27/16 Time of Encounter: 10:30 - Assessment and Plan (1) Colonic mass Current Visit: Yes Status: Acute POD #1 Open right colectomy with Dr. Carbajal for near obstructing right colon mass Continue bowel rest while awaiting return of bowel function NG tube to LIWS (advanced 4cm toda) IV fluids- 100ml/hour IV antibiotics Supportive care and pain control- YARN DYER pump (remove continuous from YARN DYER setting) Out of bed to chair today Continue perkins catheter to SD Daily dressing change Repeat am labs (2) Intra-abdominal fluid collection Current Visit: Yes Status: Resolved s/p IR drainage of intra-abdominal fluid collection IV antibiotics- Zosyn (3) Adrenal abnormality Current Visit: Yes Status: Chronic enlarged and nodular left adrenal gland on CT- recommended f/u MRI (4) Hypertension Current Visit: Yes Status: Chronic Normotensive Continue Metoprolol IV every 6 hours Will continue to monitor and adjust as necessary Qualifiers: Hypertension type: essential hypertension Qualified Code(s): I10 - Essential (primary) hypertension (5) Hyperlipidemia Current Visit: Yes Status: Chronic Qualifiers: Hyperlipidemia type: unspecified Qualified Code(s): E78.5 - Hyperlipidemia , unspecified (6) Hypothyroidism Current Visit: Yes Status: Chronic Continue IV levothyroxine Qualifiers: Hypothyroidism type: unspecified Qualified Code(s): E03.9 - Hypothyroidism , unspecified (7) DVT prophylaxis Current Visit: Yes Status: Acute EPCDs to bilateral lower extrimities for DVT prophylaxis Heparin 5,000 units SQ twice daily for DVT prophylaxis Subjective Patient reports: still having pain (expected surgical), no flatus, no bowel movement, afebrile, other (Patient states that she feels too lethargic with the continuous YARN DYER) Objective Vital Signs - Last 8 Hours Temp Pulse Resp BP Pulse Ox 10/27/16 07:41 51 15 122/65 93 L 10/27/16 04:16 97.4 F L 53 14 115/66 94 L Intake and Output 10/26/16 10/27/16 10/27/16 23:59 07:59 15:59 Intake Total 100 / 100 1001 / 1001 Output Total 425 / 425 50 / 50 Balance -325 / -325 -50 / -50 1001 / 1001 Intake: IV Fluids 100 / 100 1001 / 1001 0.9 % Sodium Chloride 1, 901 / 901 000 ML @ 100 mls/hr IVC . Q10H [facility] Rx#:[id number] Ofirmev 1,000 mg In 100 100 / 100 100 / 100 ml @ 400 mls/hr IVPB Q8HR [facility] Rx#:[id number] Output: Estimated Blood Loss 100 / 100 Urine Amount (Catheter) 100 / 100 Catheter 225 / 225 50 / 50 Wound Drainage 0 / 0 0 / 0 RLQ 0 / 0 0 / 0 Other: Meal NPO Weight 75.1 kg Blood Glucose* 183 153 170 Patient Weight 10/27/16 23:59 Weight 75.1 kg - General physical appearance well developed, well nourished, no distress - Eyes normal ocular movement - ENT dry mucosa, atraumatic, normocephalic - Neck Neck exam: trachea midline - Cardiovascular Cardiovascular exam: Present: RRR - Abdomen Abdomen: Present: soft, tender (expected post-op tenderness), wound (NG tube to LIWS with no drainage noted) - Incision Incision: Present: clean and dry, intact - Integumentary no rash - Neurologic CN 2-12 grossly intact - Psychiatric oriented to time, oriented to person, oriented to place, speech is normal, memory intact - Labs 10/27/16 08:04 10/27/16 08:04 Diabetes panel 10/26/16 10/27/16 Range/Units 02:41 08:04 Sodium 140 141 (136-145) mEq/L Potassium 3.1 L 4.1 D (3.5-4.5) mEq/L Chloride 105 107 (98-109) mEq/L Carbon Dioxide 25 24 (19-29) mEq/L BUN 2 L 6 L (7-20) mg/dL Creatinine 0.57 0.62 (0.57-1.11) mg/dL Glucose 94 173 H (70-99) mg/dL Calcium 8.8 8.8 (8.6-10.8) mg/dL Calcium panel 10/26/16 10/27/16 Range/Units 02:41 08:04 Calcium 8.8 8.8 (8.6-10.8) mg/dL Phosphorus 4.4 4.9 H (2.3-4.7) mg/dL Pituitary panel 10/26/16 10/27/16 Range/Units 02:41 08:04 Sodium 140 141 (136-145) mEq/L Potassium 3.1 L 4.1 D (3.5-4.5) mEq/L Chloride 105 107 (98-109) mEq/L Carbon Dioxide 25 24 (19-29) mEq/L BUN 2 L 6 L (7-20) mg/dL Creatinine 0.57 0.62 (0.57-1.11) mg/dL Glucose 94 173 H (70-99) mg/dL Calcium 8.8 8.8 (8.6-10.8) mg/dL Adrenal panel 10/26/16 10/27/16 Range/Units 02:41 08:04 Sodium 140 141 (136-145) mEq/L Potassium 3.1 L 4.1 D (3.5-4.5) mEq/L Chloride 105 107 (98-109) mEq/L Carbon Dioxide 25 24 (19-29) mEq/L BUN 2 L 6 L (7-20) mg/dL Creatinine 0.57 0.62 (0.57-1.11) mg/dL Glucose 94 173 H (70-99) mg/dL Calcium 8.8 8.8 (8.6-10.8) mg/dL - VTE Documentation of Mechanical Device: Graduated compression elastic hosiery Consult Discharge Plan - Plan Additional Instructions: 1 Pigtail drain- cleanse around drain with soap and water, pat dry daily; apply split 4X4 gauze and tape to secure daily. Empty drain 2 times daily and as needed if full and record outputs (ml/cc) and bring drain record to follow-up appointment on 11/04/[address] Carbajal 2 February shower, no tub bath Referrals: Tracie Carbajal MD [Partnered Physician] - 11/04/16 1:50 pm (hospital follow- up) Samuel Mary DO [Primary Care Provider] - (1-2 weeks; patient will need follow-up MRI to further evaluate the left adrenal gland) - Attending Attestation I examined this patient and my medical decision-making was reviewed with the OCCUPATIONAL THERAPY DIRECTOR/PA/Advanced Practice Nurse/Resident Physician. I agree with the documented findings, disposition and treatment plan as described except to the extent set forth below. <Tracie Carbajal - Last Filed: 10/27/16 15:09> Time of Encounter: 14:00 - Assessment and Plan (1) Colon cancer Current Visit: Yes Status: Acute pod #1 right colectomy pathology from biopsies at colonoscopy last wednesday back and show poorly differentiated invasive carcinoma continue to wait for return of bowel function. ngt decompression, dc perkins in am car wash attendant automatic for pain control OOB to chair/ambulate today Qualifiers: Colon location: ascending Qualified Code(s): C18.2 - Malignant neoplasm of ascending colon (2) DVT prophylaxis Current Visit: Yes Status: Acute (3) Adrenal abnormality Current Visit: Yes Status: Chronic (4) Hyperlipidemia Current Visit: Yes Status: Chronic holding home meds until taking in po Qualifiers: Hyperlipidemia type: unspecified Qualified Code(s): E78.5 - Hyperlipidemia , unspecified (5) Hypertension Current Visit: Yes Status: Chronic Qualifiers: Hypertension type: essential hypertension Qualified Code(s): I10 - Essential (primary) hypertension (6) Hypothyroidism Current Visit: Yes Status: Chronic Qualifiers: Hypothyroidism type: unspecified Qualified Code(s): E03.9 - Hypothyroidism , unspecified (7) Hypomagnesemia Current Visit: Yes Status: Acute replaced magnesium, check level tomorrow Subjective Narrative: Pain controlled no nausea no flatus or bm Objective Vital Signs - Last 8 Hours Temp Pulse Resp BP Pulse Ox 10/27/16 11:23 97.5 F L 50 15 113/68 96 10/27/16 07:41 51 15 122/65 93 L Intake and Output 10/26/16 10/27/16 10/27/16 23:59 07:59 15:59 Intake Total 100 / 100 100 / 100 1001 / 1001 Output Total 425 / 425 50 / 50 150 / 150 Balance -325 / -325 50 / 50 851 / 851 Intake: IV Fluids 100 / 100 100 / 100 1001 / 1001 0.9 % Sodium Chloride 1, 901 / 901 000 ML @ 100 mls/hr IVC . Q10H [facility] Rx#:[id number] Ofirmev 1,000 mg In 100 100 / 100 100 / 100 ml @ 400 mls/hr IVPB Q8HR [facility] Rx#:[id number] Zosyn 3.375 GM In 100 / 100 Dextrose 5% (Minibag+) 100 ML 100 ML @ 25 mls/hr IVPB Q8H [facility] Rx#: [id number] Output: Estimated Blood Loss 100 / 100 Urine Amount (Catheter) 100 / 100 Catheter 225 / 225 50 / 50 150 / 150 Wound Drainage 0 / 0 0 / 0 RLQ 0 / 0 0 / 0 Other: Meal NPO Weight 75.1 kg Blood Glucose* 183 153 145 Patient Weight 10/27/16 23:59 Weight 75.1 kg - General physical appearance well developed, well nourished, no distress - Eyes PERRL, normal ocular movement - ENT atraumatic, normocephalic - Neck Neck exam: trachea midline - Respiratory normal expansion, clear to auscultation - Cardiovascular Cardiovascular exam: Present: RRR - Abdomen Abdomen: Present: bowel sounds present, soft, tender, wound - Incision Incision: Present: clean and dry, intact - Integumentary no rash - Neurologic CN 2-12 grossly intact - Psychiatric oriented to time, oriented to person, oriented to place, memory intact - Labs 10/27/16 08:04 10/27/16 08:04 Short CBC 10/27/16 Range/Units 08:04 WBC 12.6 H D (4.3-11.1) K/mcL Hgb 10.4 L (11.5-15.4) g/dL Hct 32.6 L (35.3-44.9) % Plt Count 375 (140-400) K/mcL Neutrophils # 11.1 H (1.6-8.9) K/mcL BMP 10/27/16 Range/Units 08:04 Sodium 141 (136-145) mEq/L Potassium 4.1 D (3.5-4.5) mEq/L Chloride 107 (98-109) mEq/L Carbon Dioxide 24 (19-29) mEq/L BUN 6 L (7-20) mg/dL Creatinine 0.62 (0.57-1.11) mg/dL Glucose 173 H (70-99) mg/dL Calcium 8.8 (8.6-10.8) mg/dL Vital Signs Temp Pulse Resp BP Pulse Ox 10/27/16 11:23 97.5 F L 50 15 113/68 96 10/27/16 07:41 51 15 122/65 93 L 10/27/16 04:16 97.4 F L 53 14 115/66 94 L 10/26/16 23:47 97.6 F 65 14 121/73 95 10/26/16 21:50 98.1 F 76 16 134/82 95 10/26/16 20:50 97.6 F 72 16 138/87 95 10/26/16 19:50 97.6 F 77 16 130/72 95 10/26/16 19:20 97.4 F L 70 16 147/80 94 L 10/26/16 18:50 97.9 F 58 16 130/77 95 10/26/16 18:09 69 16 128/75 96 10/26/16 17:59 55 16 135/75 97 10/26/16 17:49 97.1 F L 58 16 129/61 97 10/26/16 17:39 56 16 122/71 97 10/26/16 17:29 58 16 130/64 96 10/26/16 17:19 97.1 F L 64 16 140/69 93 L Intake and Output 10/26/16 10/27/16 10/27/16 23:59 07:59 15:59 Intake Total 100 / 100 100 / 100 1001 / 1001 Output Total 425 / 425 50 / 50 150 / 150 Balance -325 / -325 50 / 50 851 / 851 Intake: IV Fluids 100 / 100 100 / 100 1001 / 1001 0.9 % Sodium Chloride 1, 901 / 901 000 ML @ 100 mls/hr IVC . Q10H [facility] Rx#:[id number] Ofirmev 1,000 mg In 100 100 / 100 100 / 100 ml @ 400 mls/hr IVPB Q8HR [facility] Rx#:[id number] Zosyn 3.375 GM In 100 / 100 Dextrose 5% (Minibag+) 100 ML 100 ML @ 25 mls/hr IVPB Q8H [facility] Rx#: [id number] Output: Estimated Blood Loss 100 / 100 Urine Amount (Catheter) 100 / 100 Catheter 225 / 225 50 / 50 150 / 150 Wound Drainage 0 / 0 0 / 0 RLQ 0 / 0 0 / 0 Other: Meal NPO Weight 75.1 kg Blood Glucose* 183 153 145 Patient Weight 10/27/16 23:59 Weight 75.1 kg
[2016-10-27] MEDS ORDERED: *HR* HYDROmorphone 20 MG/20 ML PCA IVC PRN (11:45)
[2016-10-28] MEDS: *HR* Metoprolol 5 MG/5 ML VIAL IVP SCH ×4 (00:50→18:25)
[2016-10-28] MEDS: Acetaminophen IV 1,000 MG/100 ML INFUS..BTL IVPB SCH ×3 (01:13→17:44)
[2016-10-28] MEDS: Piperacillin/Tazobactam 3.375 GM in D5% in Water (Mini-Bag+) 100 ML IVPB SCH ×3 (02:53→18:24)
[2016-10-28 05:54] LABS: Basophils % 0.3 %; Eosinophils # 0.1 K/mcL (0.0-0.6); Eosinophils % 0.7 %; Hematocrit 32.3 % (35.3-44.9); Immature Granulocytes % 0.4 % (0-4); Lymphocytes # 1.2 K/mcL (0.6-4.6); Lymphocytes % 12.1 %; Mean Corpuscular Hemoglobin 25.3 pg (28.0-33.3); Mean Corpuscular Volume 81.8 fL (83.0-100.0); Mean Platelet Volume 9.3 fL (9.4-12.4); Monocytes # 0.9 K/mcL (0.0-1.3); Monocytes % 9.3 %; Neutrophils # 7.4 K/mcL (1.6-8.9); Platelet Count 415 K/mcL (140-400); Red Blood Count 3.95 M/mcL (3.82-4.97); Red Cell Distribution Width 14.7 % (11.5-14.5); Segmented Neutrophils % 77.2 %
[2016-10-28 06:10] LABS: BUN/Creatinine Ratio 19 (6-26); Blood Urea Nitrogen 11 mg/dL (7-20); Calcium 8.5 mg/dL (8.6-10.8); Carbon Dioxide 26 mEq/L (19-29); Chloride 108 mEq/L (98-109); Glucose 99 mg/dL (70-99); Magnesium 1.8 mg/dL (1.6-2.6); Osmolality,Calculated 293 (280-300); Phosphorous 2.7 mg/dL (2.3-4.7); Potassium 3.7 mEq/L (3.5-4.5); Sodium 142 mEq/L (136-145); eGFR For African Americans > 60 (> 60); eGFR For Non-African Americans > 60 (> 60)
[2016-10-28] MEDS: Pantoprazole 40 MG VIAL IVP SCH (06:28)
[2016-10-28] MEDS: *HR* Heparin 5,000 UNIT/ML VIAL SQ SCH ×2 (07:38→19:46)
[2016-10-28] MEDS: 0.9 % Sodium Chloride 1,000 ML IVC SCH ×2 (08:10→20:43)
[2016-10-28] MEDS: Levothyroxine Sodium 100 MCG VIAL IVP SCH (08:19)
--- NOTE | 2016-10-28 09:34 | General Surgery Progress Note ---
<Jesse Gant - Last Filed: 10/28/16 09:32> Date of Encounter: 10/28/16 Time of Encounter: 09:15 - Assessment and Plan (1) Colonic mass Current Visit: Yes Status: Acute POD #2 Open right colectomy with Dr. Carbajal for near obstructing right colon mass Pathology from biopsies at colonoscopy last wednesday back and show poorly differentiated invasive carcinoma Continue bowel rest while awaiting return of bowel function NG tube to LIWS IV fluids- 100ml/hour IV antibiotics Supportive care and pain control- DEVELOPER ARCHITECT pump Out of bed to chair/ambulate Dc'd perkins. Daily dressing change Repeat am labs (2) Intra-abdominal fluid collection Current Visit: Yes Status: Resolved s/p IR drainage of intra-abdominal fluid collection IV antibiotics- Zosyn (3) Adrenal abnormality Current Visit: Yes Status: Chronic enlarged and nodular left adrenal gland on CT- recommended f/u MRI (4) Hypertension Current Visit: Yes Status: Chronic Normotensive. Continue Metoprolol IV every 6 hours Will continue to monitor and adjust as necessary Qualifiers: Hypertension type: essential hypertension Qualified Code(s): I10 - Essential (primary) hypertension (5) Hyperlipidemia Current Visit: Yes Status: Chronic Holding meds, until taking PO. Qualifiers: Hyperlipidemia type: unspecified Qualified Code(s): E78.5 - Hyperlipidemia , unspecified (6) Hypothyroidism Current Visit: Yes Status: Chronic Continue IV levothyroxine Qualifiers: Hypothyroidism type: unspecified Qualified Code(s): E03.9 - Hypothyroidism , unspecified (7) Hypomagnesemia Current Visit: Yes Status: Acute Replaced yesterday. Improved from 1.5 to 1.8. (8) DVT prophylaxis Current Visit: Yes Status: Acute EPCDs to bilateral lower extrimities for DVT prophylaxis Heparin 5,000 units SQ twice daily for DVT prophylaxis Subjective Patient reports: no new complaints, feels better, still having pain (expected surgical), no flatus, no bowel movement, afebrile Objective Vital Signs - Last 8 Hours Temp Pulse Resp BP Pulse Ox 10/28/16 07:04 97.4 F L 62 16 120/74 94 L 10/28/16 04:41 98.0 F 62 14 120/67 96 Intake and Output 10/27/16 10/28/16 10/28/16 23:59 07:59 15:59 Intake Total 1185 / 1185 200 / 200 1000 / 1000 Output Total 600 / 600 550 / 550 Balance 585 / 585 -350 / -350 1000 / 1000 Intake: IV Fluids 905 / 905 200 / 200 1000 / 1000 0.9 % Sodium Chloride 1, 605 / 605 1000 / 1000 000 ML @ 100 mls/hr IVC . Q10H [facility] Rx#:[id number] Ofirmev 1,000 mg In 100 100 / 100 100 / 100 ml @ 400 mls/hr IVPB Q8HR [facility] Rx#:[id number] Zosyn 3.375 GM In 200 / 200 100 / 100 Dextrose 5% (Minibag+) 100 ML 100 ML @ 25 mls/hr IVPB Q8H [facility] Rx#: [id number] Oral 280 / 280 Output: Emesis 200 / 200 Catheter 150 / 150 350 / 350 Gastric Drainage 450 / 450 Other: Meal Ice chips given NPO Weight 75.1 kg Blood Glucose* 97 Patient Weight 10/28/16 23:59 Weight 75.1 kg - General physical appearance well developed, well nourished, no distress - Eyes normal ocular movement - ENT normal mucosa, atraumatic, normocephalic - Neck Neck exam: trachea midline - Respiratory normal respiratory effort, clear to auscultation - Cardiovascular Cardiovascular exam: Present: RRR, murmurs (systolic) - Abdomen Abdomen: Present: soft, tender (expected post-op tenderness), wound (NG tube to LIWS with minimal drainage noted.) - Incision Incision: Present: clean and dry, intact - Integumentary no rash - Neurologic CN 2-12 grossly intact - Psychiatric oriented to time, oriented to person, oriented to place, speech is normal, memory intact - Labs 10/28/16 05:17 10/28/16 05:17 Diabetes panel 10/28/16 Range/Units 05:17 Sodium 142 (136-145) mEq/L Potassium 3.7 (3.5-4.5) mEq/L Chloride 108 (98-109) mEq/L Carbon Dioxide 26 (19-29) mEq/L BUN 11 (7-20) mg/dL Creatinine 0.59 (0.57-1.11) mg/dL Glucose 99 (70-99) mg/dL Calcium 8.5 L (8.6-10.8) mg/dL Calcium panel 10/28/16 Range/Units 05:17 Calcium 8.5 L (8.6-10.8) mg/dL Phosphorus 2.7 (2.3-4.7) mg/dL Pituitary panel 10/28/16 Range/Units 05:17 Sodium 142 (136-145) mEq/L Potassium 3.7 (3.5-4.5) mEq/L Chloride 108 (98-109) mEq/L Carbon Dioxide 26 (19-29) mEq/L BUN 11 (7-20) mg/dL Creatinine 0.59 (0.57-1.11) mg/dL Glucose 99 (70-99) mg/dL Calcium 8.5 L (8.6-10.8) mg/dL Adrenal panel 10/28/16 Range/Units 05:17 Sodium 142 (136-145) mEq/L Potassium 3.7 (3.5-4.5) mEq/L Chloride 108 (98-109) mEq/L Carbon Dioxide 26 (19-29) mEq/L BUN 11 (7-20) mg/dL Creatinine 0.59 (0.57-1.11) mg/dL Glucose 99 (70-99) mg/dL Calcium 8.5 L (8.6-10.8) mg/dL - VTE Documentation of Mechanical Device: Graduated compression elastic hosiery Consult Discharge Plan - Plan Additional Instructions: 1 Pigtail drain- cleanse around drain with soap and water, pat dry daily; apply split 4X4 gauze and tape to secure daily. Empty drain 2 times daily and as needed if full and record outputs (ml/cc) and bring drain record to follow-up appointment on 11/04/[address] Carbajal 2 February shower, no tub bath Referrals: Tracie Carbajal MD [Partnered Physician] - 11/04/16 1:50 pm (hospital follow- up) Samuel Mary DO [Primary Care Provider] - (1-2 weeks; patient will need follow-up MRI to further evaluate the left adrenal gland) <Tracie Carbajal - Last Filed: 10/28/16 15:15> Time of Encounter: 12:30 - Assessment and Plan (1) Colon cancer Current Visit: Yes Status: Acute pathology from colonoscopy shows poorly differentiated adenocarcinoma pathology from surgery pending Qualifiers: Colon location: ascending Qualified Code(s): C18.2 - Malignant neoplasm of ascending colon (2) DVT prophylaxis Current Visit: Yes Status: Acute (3) Adrenal abnormality Current Visit: Yes Status: Chronic (4) Hyperlipidemia Current Visit: Yes Status: Chronic Qualifiers: Hyperlipidemia type: unspecified Qualified Code(s): E78.5 - Hyperlipidemia , unspecified (5) Hypertension Current Visit: Yes Status: Chronic Qualifiers: Hypertension type: essential hypertension Qualified Code(s): I10 - Essential (primary) hypertension (6) Hypothyroidism Current Visit: Yes Status: Chronic Qualifiers: Hypothyroidism type: unspecified Qualified Code(s): E03.9 - Hypothyroidism , unspecified (7) Hypomagnesemia Current Visit: Yes Status: Resolved (8) S/P right colectomy Current Visit: Yes Status: Acute pod 2 right colectomy await return of bowel function, pt with good bowel sounds once return of bowel function will dc ngt and start clears continue farm consultant for pain control continue ambulation pathology pending Subjective Narrative: pain primarily controlled with farm consultant - she is barely hitting the farm consultant no nausea or emesis. she denies flatus or bm she ambulated last evening perkins was removed this am and she is urinating without issue Objective Vital Signs - Last 8 Hours Temp Pulse Resp BP Pulse Ox 10/28/16 11:56 98.7 F 64 17 114/23 95 10/28/16 07:04 97.4 F L 62 16 120/74 94 L Intake and Output 10/27/16 10/28/16 10/28/16 23:59 07:59 15:59 Intake Total 1185 / 1185 200 / 200 1100 / 1100 Output Total 600 / 600 550 / 550 Balance 585 / 585 -350 / -350 1100 / 1100 Intake: IV Fluids 905 / 905 200 / 200 1100 / 1100 0.9 % Sodium Chloride 1, 605 / 605 1000 / 1000 000 ML @ 100 mls/hr IVC . Q10H [facility] Rx#:[id number] Ofirmev 1,000 mg In 100 100 / 100 100 / 100 100 / 100 ml @ 400 mls/hr IVPB Q8HR [facility] Rx#:[id number] Zosyn 3.375 GM In 200 / 200 100 / 100 Dextrose 5% (Minibag+) 100 ML 100 ML @ 25 mls/hr IVPB Q8H [facility] Rx#: [id number] Oral 280 / 280 Output: Emesis 200 / 200 Catheter 150 / 150 350 / 350 Gastric Drainage 450 / 450 Other: Meal Ice chips given NPO NPO # Voids 1 Weight 75.1 kg Blood Glucose* 97 101 Patient Weight 10/28/16 23:59 Weight 75.1 kg - General physical appearance well developed, well nourished, no distress - Eyes PERRL, normal ocular movement - ENT normal mucosa, atraumatic, normocephalic - Respiratory normal expansion, clear to auscultation - Cardiovascular Cardiovascular exam: Present: RRR, murmurs - Abdomen Abdomen: Present: soft, tender - Incision Incision: Present: clean and dry, intact. Absent: draining, erythema - Integumentary no rash, no growths - Neurologic CN 2-12 grossly intact - Musculoskeletal normal posture - Psychiatric oriented to time, oriented to person, oriented to place, speech is normal, memory intact - Labs 10/28/16 05:17 10/28/16 05:17 Short CBC 10/28/16 Range/Units 05:17 WBC 9.7 (4.3-11.1) K/mcL Hgb 10.0 L (11.5-15.4) g/dL Hct 32.3 L (35.3-44.9) % Plt Count 415 H (140-400) K/mcL Neutrophils # 7.4 (1.6-8.9) K/mcL BMP 10/28/16 Range/Units 05:17 Sodium 142 (136-145) mEq/L Potassium 3.7 (3.5-4.5) mEq/L Chloride 108 (98-109) mEq/L Carbon Dioxide 26 (19-29) mEq/L BUN 11 (7-20) mg/dL Creatinine 0.59 (0.57-1.11) mg/dL Glucose 99 (70-99) mg/dL Calcium 8.5 L (8.6-10.8) mg/dL Vital Signs Temp Pulse Resp BP Pulse Ox 10/28/16 11:56 98.7 F 64 17 114/23 95 10/28/16 07:04 97.4 F L 62 16 120/74 94 L 10/28/16 04:41 98.0 F 62 14 120/67 96 10/28/16 00:50 65 123/72 10/28/16 00:00 98.2 F 70 14 114/64 97 10/27/16 19:58 97.3 F L 67 14 117/64 93 L 10/27/16 18:37 56 10/27/16 17:30 97.8 F 10/27/16 15:15 54 15 125/65 97 Intake and Output 10/27/16 10/28/16 10/28/16 23:59 07:59 15:59 Intake Total 1185 / 1185 200 / 200 1100 / 1100 Output Total 600 / 600 550 / 550 Balance 585 / 585 -350 / -350 1100 / 1100 Intake: IV Fluids 905 / 905 200 / 200 1100 / 1100 0.9 % Sodium Chloride 1, 605 / 605 1000 / 1000 000 ML @ 100 mls/hr IVC . Q10H [facility] Rx#:[id number] Ofirmev 1,000 mg In 100 100 / 100 100 / 100 100 / 100 ml @ 400 mls/hr IVPB Q8HR [facility] Rx#:[id number] Zosyn 3.375 GM In 200 / 200 100 / 100 Dextrose 5% (Minibag+) 100 ML 100 ML @ 25 mls/hr IVPB Q8H [facility] Rx#: [id number] Oral 280 / 280 Output: Emesis 200 / 200 Catheter 150 / 150 350 / 350 Gastric Drainage 450 / 450 Other: Meal Ice chips given NPO NPO # Voids 1 Weight 75.1 kg Blood Glucose* 97 101 Patient Weight 10/28/16 23:59 Weight 75.1 kg - Attending Attestation I examined this patient and my medical decision-making was reviewed with the RADIATION PHYSICIST/PA/Advanced Practice Nurse/Resident Physician. I agree with the documented findings, disposition and treatment plan as described except to the extent set forth below.
[2016-10-29] MEDS: *HR* Metoprolol 5 MG/5 ML VIAL IVP SCH ×4 (00:50→17:24)
[2016-10-29] MEDS: Acetaminophen IV 1,000 MG/100 ML INFUS..BTL IVPB SCH ×3 (00:50→15:38)
[2016-10-29] MEDS: Piperacillin/Tazobactam 3.375 GM in D5% in Water (Mini-Bag+) 100 ML IVPB SCH ×3 (01:32→17:25)
[2016-10-29] MEDS: 0.9 % Sodium Chloride 1,000 ML IVC SCH ×2 (06:02→17:23)
[2016-10-29] MEDS: *HR* Heparin 5,000 UNIT/ML VIAL SQ SCH ×2 (06:03→18:04)
[2016-10-29 07:15] LABS: Basophils % 0.4 %; Eosinophils # 0.1 K/mcL (0.0-0.6); Eosinophils % 1.4 %; Hematocrit 31.3 % (35.3-44.9); Hemoglobin 9.7 g/dL (11.5-15.4); Immature Granulocytes % 1.6 % (0-4); Lymphocytes % 13.2 %; Mean Corpuscular Hemoglobin 25.2 pg (28.0-33.3); Mean Corpuscular Volume 81.3 fL (83.0-100.0); Mean Platelet Volume 9.3 fL (9.4-12.4); Monocytes # 0.6 K/mcL (0.0-1.3); Monocytes % 7.5 %; Neutrophils # 5.9 K/mcL (1.6-8.9); Platelet Count 379 K/mcL (140-400); Red Blood Count 3.85 M/mcL (3.82-4.97); Red Cell Distribution Width 15.1 % (11.5-14.5); Segmented Neutrophils % 75.9 %
[2016-10-29 07:26] LABS: BUN/Creatinine Ratio 19 (6-26); Blood Urea Nitrogen 10 mg/dL (7-20); Calcium 8.2 mg/dL (8.6-10.8); Carbon Dioxide 23 mEq/L (19-29); Chloride 109 mEq/L (98-109); Glucose 85 mg/dL (70-99); Osmolality,Calculated 290 (280-300); Potassium 3.6 mEq/L (3.5-4.5); Sodium 141 mEq/L (136-145); eGFR For African Americans > 60 (> 60); eGFR For Non-African Americans > 60 (> 60)
[2016-10-29] MEDS: Pantoprazole 40 MG VIAL IVP SCH (08:25)
[2016-10-29] MEDS ORDERED: Magnesium Sulfate 2 GM in D5% in Water 100 ML IVPB ONE (08:45)
[2016-10-29] MEDS: Levothyroxine Sodium 100 MCG VIAL IVP SCH (09:51)
--- NOTE | 2016-10-29 12:02 | General Surgery Progress Note ---
<Jesse Gant - Last Filed: 10/29/16 14:48> Date of Encounter: 10/29/16 Time of Encounter: 07:50 - Assessment and Plan (1) Colonic mass Status: Acute POD #3 Open right colectomy with Dr. Carbajal for near obstructing right colon mass Pathology from biopsies at colonoscopy last wednesday back and show poorly differentiated invasive carcinoma Advancing to clear liquid diet. NG removed IV fluids- 100ml/hour IV antibiotics Supportive care and pain control- TIRE FABRIC INSPECTOR pump Out of bed to chair/ambulate Daily dressing change Repeat am labs (2) Intra-abdominal fluid collection Status: Resolved s/p IR drainage of intra-abdominal fluid collection IV antibiotics- Zosyn (3) Adrenal abnormality Status: Chronic enlarged and nodular left adrenal gland on CT- recommended f/u MRI (4) Hypertension Status: Chronic Normotensive this AM at 126/69. Continue Metoprolol IV every 6 hours Will continue to monitor and adjust as necessary Qualifiers: Hypertension type: essential hypertension Qualified Code(s): I10 - Essential (primary) hypertension (5) Hyperlipidemia Status: Chronic Holding meds, until taking PO. Hopefully can restart shortly. Qualifiers: Hyperlipidemia type: unspecified Qualified Code(s): E78.5 - Hyperlipidemia , unspecified (6) Hypothyroidism Status: Chronic Continue IV levothyroxine, will see how today goes with clear liquids, possibly transition to PO. Qualifiers: Hypothyroidism type: unspecified Qualified Code(s): E03.9 - Hypothyroidism , unspecified (7) Hypomagnesemia Status: Resolved Mg 1.5>1.8>1.4 Will replace again today. (8) DVT prophylaxis Status: Acute EPCDs to bilateral lower extrimities for DVT prophylaxis Heparin 5,000 units SQ twice daily for DVT prophylaxis Subjective Patient reports: no new complaints, feels better, pain is less, voiding w/o difficulty, flatus, no bowel movement, afebrile Objective Vital Signs - Last 8 Hours Temp Pulse Resp BP Pulse Ox 10/29/16 10:39 97.9 F 60 16 126/69 95 10/29/16 10:30 95 10/29/16 07:00 95 10/29/16 06:41 97.6 F 64 17 135/79 95 10/29/16 05:37 97.6 F 69 18 143/71 92 L Intake and Output 10/28/16 10/29/16 10/29/16 23:59 07:59 15:59 Intake Total 1320 / 1320 1419 / 1419 700 / 700 Output Total 200 / 200 400 / 400 150 / 150 Balance 1120 / 1120 1019 / 1019 550 / 550 Intake: IV Fluids 1200 / 1200 1359 / 1359 340 / 340 0.9 % Sodium Chloride 1, 1000 / 1000 1159 / 1159 240 / 240 000 ML @ 100 mls/hr IVC . Q10H [facility] Rx#:[id number] Ofirmev 1,000 mg In 100 100 / 100 100 / 100 100 / 100 ml @ 400 mls/hr IVPB Q8HR [facility] Rx#:[id number] Zosyn 3.375 GM In 100 / 100 100 / 100 Dextrose 5% (Minibag+) 100 ML 100 ML @ 25 mls/hr IVPB Q8H [facility] Rx#: [id number] Oral 120 / 120 60 / 60 360 / 360 Output: Urine 200 / 200 200 / 200 150 / 150 Gastric Drainage 200 / 200 Other: Meal ice chips ice chips Breakfast Percent of Meal Consumed 100% # Voids 2 Blood Glucose* 81 80 - General physical appearance well developed, well nourished, no distress - Eyes normal ocular movement - ENT normal mucosa, atraumatic, normocephalic - Neck Neck exam: trachea midline - Respiratory normal respiratory effort, clear to auscultation - Cardiovascular Cardiovascular exam: Present: RRR, murmurs (systolic) - Abdomen Abdomen: Present: bowel sounds present, soft, tender (minimal, expected post- operative tenderness), wound (NG tube to LIWS with minimal drainage noted( removed today)) - Integumentary no rash - Neurologic CN 2-12 grossly intact - Musculoskeletal normal gait, normal posture - Psychiatric oriented to time, oriented to person, oriented to place, speech is normal, memory intact - Labs 10/29/16 07:07 10/29/16 07:07 Diabetes panel 10/29/16 Range/Units 07:07 Sodium 141 (136-145) mEq/L Potassium 3.6 (3.5-4.5) mEq/L Chloride 109 (98-109) mEq/L Carbon Dioxide 23 (19-29) mEq/L BUN 10 (7-20) mg/dL Creatinine 0.53 L (0.57-1.11) mg/dL Glucose 85 (70-99) mg/dL Calcium 8.2 L (8.6-10.8) mg/dL Calcium panel 10/29/16 Range/Units 07:07 Calcium 8.2 L (8.6-10.8) mg/dL Pituitary panel 10/29/16 Range/Units 07:07 Sodium 141 (136-145) mEq/L Potassium 3.6 (3.5-4.5) mEq/L Chloride 109 (98-109) mEq/L Carbon Dioxide 23 (19-29) mEq/L BUN 10 (7-20) mg/dL Creatinine 0.53 L (0.57-1.11) mg/dL Glucose 85 (70-99) mg/dL Calcium 8.2 L (8.6-10.8) mg/dL Adrenal panel 10/29/16 Range/Units 07:07 Sodium 141 (136-145) mEq/L Potassium 3.6 (3.5-4.5) mEq/L Chloride 109 (98-109) mEq/L Carbon Dioxide 23 (19-29) mEq/L BUN 10 (7-20) mg/dL Creatinine 0.53 L (0.57-1.11) mg/dL Glucose 85 (70-99) mg/dL Calcium 8.2 L (8.6-10.8) mg/dL - VTE Documentation of Mechanical Device: Intermittent pneumatic compression device Consult Discharge Plan - Plan Instructions: Oxycodone/Acetaminophen (By mouth), Simethicone (By mouth), Amoxicillin (By mouth), Hypothyroidism (DC), Chronic Hypertension (DC) Referrals: Tracie Carbajal MD [Partnered Physician] - 11/04/16 1:50 pm (call office on wednesday to reschedule for an appt on Nov 11) Samuel Mary DO [Primary Care Provider] - (1-2 weeks; patient will need follow-up MRI to further evaluate the left adrenal gland) Prescriptions: OxyCODONE/APAP 5/325 [Percocet 5/325 MG] 1 each PO Q4HR PRN #30 tablet PRN Reason: Pain Simethicone [Gas Relief] 180 mg PO Q8HR #30 capsule Amoxicillin/Clavulanate [Augmentin] 875 mg PO BIDWM #10 tablet <Tracie Carbajal - Last Filed: 11/03/16 13:18> Time of Encounter: 12:30 - Assessment and Plan (1) Colon cancer Status: Acute pathology pending Qualifiers: Qualified Code(s): C18.2 - Malignant neoplasm of ascending colon (2) DVT prophylaxis Status: Acute (3) Adrenal abnormality Status: Chronic (4) Hyperlipidemia Status: Chronic Qualifiers: Qualified Code(s): E78.5 - Hyperlipidemia, unspecified (5) Hypertension Status: Chronic Qualifiers: Qualified Code(s): I10 - Essential (primary) hypertension (6) Hypothyroidism Status: Chronic Qualifiers: Qualified Code(s): E03.9 - Hypothyroidism, unspecified (7) S/P right colectomy Status: Acute she has flatus today, dc ngt and start clears continue prn pain control, pt not using much gi/dvt prophylaxis ambulating good uop (8) Hypokalemia Status: Acute replaced, repeat labs am Subjective Patient reports: no new complaints, feels better, pain is less, voiding w/o difficulty, flatus, no bowel movement Objective Vital Signs - Last 8 Hours Temp Pulse Resp BP Pulse Ox 10/30/16 10:00 98.4 F 64 16 135/74 93 L 10/30/16 06:40 98.0 F 60 16 132/62 93 L Intake and Output 10/29/16 10/30/16 10/30/16 23:59 07:59 15:59 Intake Total 1141 / 1141 1420 / 1420 735 / 735 Output Total 450 / 450 950 / 950 200 / 200 Balance 691 / 691 470 / 470 535 / 535 Intake: IV Fluids 301 / 301 1100 / 1100 495 / 495 0.9 % Sodium Chloride 1, 201 / 201 1000 / 1000 495 / 495 000 ML @ 100 mls/hr IVC . Q10H [facility] Rx#:[id number] Zosyn 3.375 GM In 100 / 100 100 / 100 Dextrose 5% (Minibag+) 100 ML 100 ML @ 25 mls/hr IVPB Q8H [facility] Rx#: [id number] Oral 840 / 840 320 / 320 240 / 240 Output: Urine 450 / 450 550 / 550 200 / 200 Urine/Stool Mix 400 / 400 Wound Drainage 0 / 0 RLQ 0 / 0 Other: Meal Dinner Breakfast Weight 75 kg Patient Weight 10/30/16 23:59 Weight 75 kg - General physical appearance well developed, well nourished, no distress - Eyes PERRL, normal ocular movement - ENT normal mucosa, atraumatic, normocephalic - Neck Neck exam: trachea midline - Respiratory normal expansion, clear to auscultation - Cardiovascular Cardiovascular exam: Present: RRR, murmurs - Abdomen Abdomen: Present: bowel sounds present, soft, tender, wound - Incision Incision: Present: clean and dry, intact - Integumentary no rash - Neurologic CN 2-12 grossly intact - Musculoskeletal normal posture - Psychiatric oriented to time, oriented to person, memory intact - Labs 10/31/16 06:00 10/31/16 06:00 Diabetes panel 10/30/16 Range/Units 04:44 Sodium 139 (136-145) mEq/L Potassium 3.4 L (3.5-4.5) mEq/L Chloride 107 (98-109) mEq/L Carbon Dioxide 23 (19-29) mEq/L BUN 5 L (7-20) mg/dL Creatinine 0.48 L (0.57-1.11) mg/dL Glucose 89 (70-99) mg/dL Calcium 8.3 L (8.6-10.8) mg/dL Calcium panel 10/30/16 Range/Units 04:44 Calcium 8.3 L (8.6-10.8) mg/dL Pituitary panel 10/30/16 Range/Units 04:44 Sodium 139 (136-145) mEq/L Potassium 3.4 L (3.5-4.5) mEq/L Chloride 107 (98-109) mEq/L Carbon Dioxide 23 (19-29) mEq/L BUN 5 L (7-20) mg/dL Creatinine 0.48 L (0.57-1.11) mg/dL Glucose 89 (70-99) mg/dL Calcium 8.3 L (8.6-10.8) mg/dL Adrenal panel 10/30/16 Range/Units 04:44 Sodium 139 (136-145) mEq/L Potassium 3.4 L (3.5-4.5) mEq/L Chloride 107 (98-109) mEq/L Carbon Dioxide 23 (19-29) mEq/L BUN 5 L (7-20) mg/dL Creatinine 0.48 L (0.57-1.11) mg/dL Glucose 89 (70-99) mg/dL Calcium 8.3 L (8.6-10.8) mg/dL - Attending Attestation I examined this patient and my medical decision-making was reviewed with the LIBRARY SALES CONSULTANT/PA/Advanced Practice Nurse/Resident Physician. I agree with the documented findings, disposition and treatment plan as described except to the extent set forth below.
[2016-10-30] MEDS: Acetaminophen IV 1,000 MG/100 ML INFUS..BTL IVPB SCH (00:10)
[2016-10-30] MEDS: *HR* Metoprolol 5 MG/5 ML VIAL IVP SCH ×2 (00:11→06:05)
[2016-10-30] MEDS: Piperacillin/Tazobactam 3.375 GM in D5% in Water (Mini-Bag+) 100 ML IVPB SCH ×3 (03:01→18:41)
[2016-10-30 05:08] LABS: Basophils % 0.5 %; Eosinophils # 0.2 K/mcL (0.0-0.6); Eosinophils % 1.9 %; Hematocrit 33.7 % (35.3-44.9); Hemoglobin 10.4 g/dL (11.5-15.4); Immature Granulocytes % 1.3 % (0-4); Immature Platelets 3.8 % (1.1-6.1); Lymphocytes # 1.3 K/mcL (0.6-4.6); Lymphocytes % 16.4 %; Mean Corpuscular HGB Conc 30.9 g/dL (31.6-35.5); Mean Corpuscular Hemoglobin 25.5 pg (28.0-33.3); Mean Corpuscular Volume 82.6 fL (83.0-100.0); Mean Platelet Volume 9.6 fL (9.4-12.4); Monocytes # 0.7 K/mcL (0.0-1.3); Monocytes % 8.2 %; Neutrophils # 5.7 K/mcL (1.6-8.9); Platelet Count 385 K/mcL (140-400); Red Blood Count 4.08 M/mcL (3.82-4.97); Segmented Neutrophils % 71.7 %
[2016-10-30 05:22] LABS: BUN/Creatinine Ratio 10 (6-26); Calcium 8.3 mg/dL (8.6-10.8); Carbon Dioxide 23 mEq/L (19-29); Chloride 107 mEq/L (98-109); Glucose 89 mg/dL (70-99); Magnesium 1.7 mg/dL (1.6-2.6); Osmolality,Calculated 285 (280-300); Potassium 3.4 mEq/L (3.5-4.5); Sodium 139 mEq/L (136-145); eGFR For African Americans > 60 (> 60); eGFR For Non-African Americans > 60 (> 60)
[2016-10-30 05:26] LABS: Blood Urea Nitrogen 5 mg/dL (7-20)
[2016-10-30] MEDS: 0.9 % Sodium Chloride 1,000 ML IVC SCH (06:05)
[2016-10-30] MEDS: Pantoprazole 40 MG VIAL IVP SCH (06:40)
[2016-10-30] MEDS: *HR* Heparin 5,000 UNIT/ML VIAL SQ SCH ×2 (06:40→18:41)
[2016-10-30] MEDS: Levothyroxine Sodium 100 MCG VIAL IVP SCH (09:26)
--- NOTE | 2016-10-30 11:08 | General Surgery Progress Note ---
Date of Encounter: 10/30/16 Time of Encounter: 11:00 - Assessment and Plan (1) Colonic mass Current Visit: Yes Status: Acute POD #4 Open right colectomy with Dr. Carbajal for near obstructing right colon mass Advance to full liquid diet today Protein supplements TID Final pathology pending IV fluids- decrease to 50ml/hour IV antibiotics- Zosyn Supportive care and pain control- D/C SCRUM COACH and add Percocet and prn dilaudid Ambulate in hallways Daily dressing change Repeat am labs (2) Intra-abdominal fluid collection Current Visit: Yes Status: Resolved s/p IR drainage of intra-abdominal fluid collection IV antibiotics- Zosyn (3) Adrenal abnormality Current Visit: Yes Status: Chronic enlarged and nodular left adrenal gland on CT- recommended f/u MRI (4) Hypertension Current Visit: Yes Status: Chronic Normotensive Resume home medication regimen Will continue to monitor and adjust as necessary Qualifiers: Hypertension type: essential hypertension Qualified Code(s): I10 - Essential (primary) hypertension (5) Hyperlipidemia Current Visit: Yes Status: Chronic Qualifiers: Hyperlipidemia type: unspecified Qualified Code(s): E78.5 - Hyperlipidemia , unspecified (6) Hypothyroidism Current Visit: Yes Status: Chronic Resume PO levothyroxine Qualifiers: Hypothyroidism type: unspecified Qualified Code(s): E03.9 - Hypothyroidism , unspecified (7) DVT prophylaxis Current Visit: Yes Status: Acute EPCDs to bilateral lower extrimities for DVT prophylaxis Heparin 5,000 units SQ twice daily for DVT prophylaxis (8) Hypokalemia Current Visit: Yes Status: Acute Replace potassium Repeat labs in the am Subjective Patient reports: no new complaints, feels better, still having pain, pain is less, tolerating liquids well, voiding w/o difficulty, flatus, bowel movement ( last evening), diarrhea, nausea (mild this morning), afebrile Objective Vital Signs - Last 8 Hours Temp Pulse Resp BP Pulse Ox 10/30/16 10:00 98.4 F 64 16 135/74 93 L 10/30/16 06:40 98.0 F 60 16 132/62 93 L 10/30/16 04:41 98.0 F 69 16 118/74 93 L Intake and Output 10/29/16 10/30/16 10/30/16 23:59 07:59 15:59 Intake Total 1141 / 1141 1420 / 1420 735 / 735 Output Total 450 / 450 950 / 950 200 / 200 Balance 691 / 691 470 / 470 535 / 535 Intake: IV Fluids 301 / 301 1100 / 1100 495 / 495 0.9 % Sodium Chloride 1, 201 / 201 1000 / 1000 495 / 495 000 ML @ 100 mls/hr IVC . Q10H [facility] Rx#:[id number] Zosyn 3.375 GM In 100 / 100 100 / 100 Dextrose 5% (Minibag+) 100 ML 100 ML @ 25 mls/hr IVPB Q8H [facility] Rx#: [id number] Oral 840 / 840 320 / 320 240 / 240 Output: Urine 450 / 450 550 / 550 200 / 200 Urine/Stool Mix 400 / 400 Wound Drainage 0 / 0 RLQ 0 / 0 Other: Meal Dinner Breakfast Weight 75 kg Patient Weight 10/30/16 23:59 Weight 75 kg - General physical appearance well developed, well nourished, no distress - Eyes normal ocular movement - ENT normal mucosa, atraumatic, normocephalic - Neck Neck exam: trachea midline - Respiratory normal respiratory effort, clear to auscultation - Cardiovascular Cardiovascular exam: Present: RRR - Abdomen Abdomen: Present: bowel sounds present, soft, tender (expected postoperative tenderness) - Incision Incision: Present: clean and dry, intact - Neurologic CN 2-12 grossly intact - Psychiatric oriented to time, oriented to person, oriented to place, speech is normal, memory intact - Labs 10/30/16 04:44 10/30/16 04:44 Diabetes panel 10/30/16 Range/Units 04:44 Sodium 139 (136-145) mEq/L Potassium 3.4 L (3.5-4.5) mEq/L Chloride 107 (98-109) mEq/L Carbon Dioxide 23 (19-29) mEq/L BUN 5 L (7-20) mg/dL Creatinine 0.48 L (0.57-1.11) mg/dL Glucose 89 (70-99) mg/dL Calcium 8.3 L (8.6-10.8) mg/dL Calcium panel 10/30/16 Range/Units 04:44 Calcium 8.3 L (8.6-10.8) mg/dL Pituitary panel 10/30/16 Range/Units 04:44 Sodium 139 (136-145) mEq/L Potassium 3.4 L (3.5-4.5) mEq/L Chloride 107 (98-109) mEq/L Carbon Dioxide 23 (19-29) mEq/L BUN 5 L (7-20) mg/dL Creatinine 0.48 L (0.57-1.11) mg/dL Glucose 89 (70-99) mg/dL Calcium 8.3 L (8.6-10.8) mg/dL Adrenal panel 10/30/16 Range/Units 04:44 Sodium 139 (136-145) mEq/L Potassium 3.4 L (3.5-4.5) mEq/L Chloride 107 (98-109) mEq/L Carbon Dioxide 23 (19-29) mEq/L BUN 5 L (7-20) mg/dL Creatinine 0.48 L (0.57-1.11) mg/dL Glucose 89 (70-99) mg/dL Calcium 8.3 L (8.6-10.8) mg/dL - VTE Documentation of Mechanical Device: Intermittent pneumatic compression device Consult Discharge Plan - Plan Additional Instructions: 1 Pigtail drain- cleanse around drain with soap and water, pat dry daily; apply split 4X4 gauze and tape to secure daily. Empty drain 2 times daily and as needed if full and record outputs (ml/cc) and bring drain record to follow-up appointment on 11/04/[address] Carbajal 2 February shower, no tub bath Referrals: Tracie Carbajal MD [Partnered Physician] - 11/04/16 1:50 pm (hospital follow- up) Samuel Mary DO [Primary Care Provider] - (1-2 weeks; patient will need follow-up MRI to further evaluate the left adrenal gland) - Attending Attestation I examined this patient and my medical decision-making was reviewed with the DRAG CAR RACER/PA/Advanced Practice Nurse/Resident Physician. I agree with the documented findings, disposition and treatment plan as described except to the extent set forth below.
[2016-10-30] MEDS ORDERED: *HR* HYDROmorphone (PF) 1 MG/ML SYRINGE IVP PRN (11:12)
[2016-10-30] MEDS ORDERED: 0.9 % Sodium Chloride 1,000 ML IVC SCH (11:17)
[2016-10-30] MEDS: Metoprolol XL (24 HR) Succ 50 MG TAB.ER.24H PO SCH (13:30)
[2016-10-30] MEDS: Simethicone 80 MG TAB.CHEW PO PRN (18:40)
[2016-10-30] MEDS: *HR* OxyCODONE/APAP 5/325 TABLET PO PRN (21:23)
[2016-10-31] MEDS: Simethicone 80 MG TAB.CHEW PO PRN ×2 (00:12→12:15)
[2016-10-31] MEDS: Piperacillin/Tazobactam 3.375 GM in D5% in Water (Mini-Bag+) 100 ML IVPB SCH ×2 (01:30→10:41)
[2016-10-31] MEDS: *HR* OxyCODONE/APAP 5/325 TABLET PO PRN ×2 (01:30→13:27)
[2016-10-31] MEDS: *HR* Heparin 5,000 UNIT/ML VIAL SQ SCH (06:14)
[2016-10-31 06:30] LABS: Basophils % 0.2 %; Eosinophils # 0.1 K/mcL (0.0-0.6); Eosinophils % 0.7 %; Hematocrit 31.1 % (35.3-44.9); Hemoglobin 9.9 g/dL (11.5-15.4); Immature Granulocytes % 0.9 % (0-4); Lymphocytes # 1.2 K/mcL (0.6-4.6); Lymphocytes % 11.2 %; Mean Corpuscular HGB Conc 31.8 g/dL (31.6-35.5); Mean Corpuscular Hemoglobin 25.3 pg (28.0-33.3); Mean Corpuscular Volume 79.3 fL (83.0-100.0); Mean Platelet Volume 9.5 fL (9.4-12.4); Monocytes # 0.6 K/mcL (0.0-1.3); Monocytes % 5.5 %; Neutrophils # 8.9 K/mcL (1.6-8.9); Platelet Count 370 K/mcL (140-400); Red Blood Count 3.92 M/mcL (3.82-4.97); Red Cell Distribution Width 15.1 % (11.5-14.5); Segmented Neutrophils % 81.5 %
[2016-10-31 06:47] LABS: BUN/Creatinine Ratio 6 (6-26); Calcium 8.3 mg/dL (8.6-10.8); Carbon Dioxide 23 mEq/L (19-29); Chloride 104 mEq/L (98-109); Glucose 122 mg/dL (70-99); Osmolality,Calculated 282 (280-300); Potassium 3.7 mEq/L (3.5-4.5); Sodium 137 mEq/L (136-145); eGFR For African Americans > 60 (> 60); eGFR For Non-African Americans > 60 (> 60)
[2016-10-31 06:48] LABS: Blood Urea Nitrogen 3 mg/dL (7-20)
[2016-10-31] MEDS: Metoprolol XL (24 HR) Succ 50 MG TAB.ER.24H PO SCH (08:36)
[2016-10-31 10:58] VITALS: BP 133/72
--- NOTE | 2016-10-31 11:08 | Discharge Summary ---
<Jesse Gant - Last Filed: 10/31/16 11:08> Date of Encounter: 10/31/16 Time of Encounter: 11:08 - Discharge Diagnosis (1) Colonic mass Status: Acute (2) Intra-abdominal fluid collection Status: Resolved (3) Adrenal abnormality Status: Chronic (4) Hypertension Status: Chronic (5) Hyperlipidemia Status: Chronic (6) Hypothyroidism Status: Chronic (7) Hypomagnesemia Status: Resolved (8) DVT prophylaxis Status: Acute - Discharge Medications Prescriptions: OxyCODONE/APAP 5/325 [Percocet 5/325 MG] 1 each PO Q4HR PRN #30 tablet PRN Reason: Pain Simethicone [Gas Relief] 180 mg PO Q8HR #30 capsule Amoxicillin/Clavulanate [Augmentin] 875 mg PO BIDWM #10 tablet Home Medications: Levothyroxine [Synthroid] 88 mcg PO DAILY 10/21/16 [History] Losartan Potassium [Cozaar] 50 mg PO DAILY 10/21/16 [History] Metoprolol Succinate 100 mg PO DAILY 10/21/16 [History] Simvastatin [Zocor] 40 mg PO HS 10/21/16 [History] Amoxicillin/Clavulanate [Augmentin] 875 mg PO BIDWM #10 tablet 10/31/16 [Rx] OxyCODONE/APAP 5/325 [Percocet 5/325 MG] 1 each PO Q4HR PRN #30 tablet 10/31/16 [Rx] Simethicone [Gas Relief] 180 mg PO Q8HR #30 capsule 10/31/16 [Rx] Allergies/Adverse Reactions: Allergies Sulfa (Sulfonamide Antibiotics) Allergy (Verified 10/21/16 18:29) Swelling of Lip/Tongue/Throat General Surgery Exam Initial Vital Signs Temp Pulse Resp BP Pulse Ox 99.4 F 71 14 108/62 98 10/21/16 19:39 10/21/16 19:39 10/21/16 19:39 10/21/16 19:39 10/21/16 19:39 Date of admission: 10/22/16 10:18 Primary care physician: Samuel Mary DO Consults: 10/30/16 18:02 Consult to Oncology [CONS] Routine Consulting Provider: [facility] Reason for Consult: colon cancer new diagnosis, s/p right colectomy Time Notified: 09:00 Call Completed: Yes - Discharge Instructions Follow Up With: Samuel Mary DO [Primary Care Provider] - (1-2 weeks; patient will need follow-up MRI to further evaluate the left adrenal gland) Tracie Carbajal MD [Partnered Physician] - 11/04/16 1:50 pm (call office on wednesday to reschedule for an appt on Nov 11) - Hospital Course Hospital course: Ms. Strickland is a 66 year old female - Time Spent with Patient Total time spent providing and/or coordinating discharge services: Labs on day of discharge: Labs from last 24 hours 10/31/16 10/31/16 06:00 06:00 WBC 10.9 RBC 3.92 Hgb 9.9 L Hct 31.1 L MCV 79.3 L MCH 25.3 L MCHC 31.8 RDW 15.1 H Plt Count 370 MPV 9.5 Immature Gran % 0.9 Seg Neutrophils % 81.5 Lymphocytes % 11.2 Monocytes % 5.5 Eosinophils % 0.7 Basophils % 0.2 Neutrophils # 8.9 Lymphocytes # 1.2 Monocytes # 0.6 Eosinophils # 0.1 Basophils # 0.0 Sodium 137 Potassium 3.7 Chloride 104 Carbon Dioxide 23 BUN 3 L Creatinine 0.48 L Est GFR ( Amer) > 60 Est GFR (Non-Af Amer) > 60 BUN/Creatinine Ratio 6 Glucose 122 H Calculated Osmolality 282 Calcium 8.3 L - Impressions ITS Impressions Abdomen/Pelvis CT 10/22/16 17:20 IMPRESSION: Thickening of the ascending colon which may be inflammatory or neoplastic in etiology. Negative for extravasation of the rectal contrast. Multiloculated fluid collection anterior to the right richard colon with soft tissue stranding suspicious for abscess Enlarged left adrenal gland which has a nodular appearance. MRI the adrenal glands is recommended for further evaluation. D/ / Jose Trejo MD / Jose Trejo MD Interpreting Provider: Jose Trejo MD Retroperitoneal Abscess Drainage 10/22/16 17:24 IMPRESSION: Successful CT guided placement of peritoneal abscess drainage catheter. D/ / Jose Trejo MD / Jose Trejo MD Interpreting Provider: Jose Trejo MD Abdomen X-Ray 10/23/16 17:00 IMPRESSION: No findings to suggest obstruction. Radiopaque marker adjacent to the surgical drain right abdomen. D/ / Etta Wick MD / Etta Wick MD Interpreting Provider: Etta Wick MD X-Ray 10/27/16 09:18 IMPRESSION: Nasogastric tube side port projects at the GE junction. Recommend advancing approximately 4 cm. The findings were sent to the Radiology Results Communication Center at 9:54 am on 10/27/2016to be communicated to a licensed caregiver. D/ / 10/27/2016 10:01:51 Divya Valdivia MD / [facility] Interpreting Provider: Divya Valdivia MD <Tracie Carbajal L - Last Filed: 10/31/16 15:24> - Discharge Diagnosis (1) Colon cancer Priority: Primary Status: Acute Qualifiers: Qualified Code(s): C18.2 - Malignant neoplasm of ascending colon (2) DVT prophylaxis Priority: Secondary Status: Acute (3) Adrenal abnormality Priority: Secondary Status: Chronic (4) Hyperlipidemia Priority: Secondary Status: Chronic Qualifiers: Qualified Code(s): E78.5 - Hyperlipidemia, unspecified (5) Hypertension Priority: Secondary Status: Chronic Qualifiers: Qualified Code(s): I10 - Essential (primary) hypertension (6) Hypothyroidism Priority: Secondary Status: Chronic Qualifiers: Qualified Code(s): E03.9 - Hypothyroidism, unspecified (7) Hypomagnesemia Priority: Secondary Status: Resolved (8) S/P right colectomy Priority: Secondary Status: Acute (9) Hypokalemia Priority: Secondary Status: Acute General Surgery Exam Initial Vital Signs Temp Pulse Resp BP Pulse Ox 99.4 F 71 14 108/62 98 10/21/16 19:39 10/21/16 19:39 10/21/16 19:39 10/21/16 19:39 10/21/16 19:39 - General physical appearance well nourished, no distress - Eyes PERRL, normal ocular movement - ENT atraumatic, normocephalic - Respiratory normal expansion, clear to auscultation - Cardiovascular Cardiovascular exam: Present: RRR, no murmurs/rubs/gallops - Abdomen Abdomen general surgery: Present: bowel sounds present, soft, tender (minimal discomfort) - Incision Incision: Present: clean and dry, intact - Integumentary Integumentary general surgery: Present: warm and dry, no abnormal pigmentation - Neurologic Present: CN 2-12 grossly intact, normal coordination, normal sensation - Musculoskeletal Present: normal gait, normal posture - Psychiatric Psychiatric general surgery: Present: A&Ox3, speech is normal Date of admission: 10/22/16 10:18 Primary care physician: Samuel Mary DO Consults: 10/30/16 18:02 Consult to Oncology [CONS] Routine Consulting Provider: [facility] Reason for Consult: colon cancer new diagnosis, s/p right colectomy Time Notified: 09:00 Call Completed: Yes Discharging clinician: Tracie Carbajal Anticipated date of discharge: 10/31/16 - Patient Status Overall status at discharge: patient is back to baseline - Diet and Activity Activity: increase activity as tolerated Diet: advance to your usual diet (no diet restrictions) - Hospital Course Hospital course: Ms. Strickland is a 66 year old female who presented to my office a little over a week ago with complaints of 2 weeks of right upper quadrant pain and a CT scan showing a thickened descending colon with fluid collections within the abdomen. She was admitted to the hospital and repeat CT with by mouth, IV, and rectal contrast was done again showing essentially a left adrenal thickening and descending colon thickening. IR placed a drain into the largest fluid collection which was sterile serous fluid. She underwent a colonoscopy which showed a large near obstructing descending colon tumor. She was then taken to the OR for an open right colectomy. Postoperatively when she started passing flatus she was started on a diet and advanced as she tolerated. Due to perforation of the colon during surgery and a small amount of spillage of liquid fecal material she was maintained on Zosyn antibiotics afterwards. She is up ambulating well having appropriate bowel and bladder function. She is discharged home with pain medication, Augmentin, and simethicone - Time Spent with Patient Total time spent providing and/or coordinating discharge services: Labs on day of discharge: Labs from last 24 hours 10/31/16 10/31/16 06:00 06:00 WBC 10.9 RBC 3.92 Hgb 9.9 L Hct 31.1 L MCV 79.3 L MCH 25.3 L MCHC 31.8 RDW 15.1 H Plt Count 370 MPV 9.5 Immature Gran % 0.9 Seg Neutrophils % 81.5 Lymphocytes % 11.2 Monocytes % 5.5 Eosinophils % 0.7 Basophils % 0.2 Neutrophils # 8.9 Lymphocytes # 1.2 Monocytes # 0.6 Eosinophils # 0.1 Basophils # 0.0 Sodium 137 Potassium 3.7 Chloride 104 Carbon Dioxide 23 BUN 3 L Creatinine 0.48 L Est GFR ( Amer) > 60 Est GFR (Non-Af Amer) > 60 BUN/Creatinine Ratio 6 Glucose 122 H Calculated Osmolality 282 Calcium 8.3 L - Impressions ITS Impressions Abdomen/Pelvis CT 10/22/16 17:20 IMPRESSION: Thickening of the ascending colon which may be inflammatory or neoplastic in etiology. Negative for extravasation of the rectal contrast. Multiloculated fluid collection anterior to the right richard colon with soft tissue stranding suspicious for abscess Enlarged left adrenal gland which has a nodular appearance. MRI the adrenal glands is recommended for further evaluation. D/ / Jose Trejo MD / Jose Trejo MD Interpreting Provider: Jose Trejo MD Retroperitoneal Abscess Drainage 10/22/16 17:24 IMPRESSION: Successful CT guided placement of peritoneal abscess drainage catheter. D/ / Jose Trejo MD / Jose Trejo MD Interpreting Provider: Jose Trejo MD Abdomen X-Ray 10/23/16 17:00 IMPRESSION: No findings to suggest obstruction. Radiopaque marker adjacent to the surgical drain right abdomen. D/ / Etta Wick MD / Etta Wick MD Interpreting Provider: Etta Wick MD X-Ray 10/27/16 09:18 IMPRESSION: Nasogastric tube side port projects at the GE junction. Recommend advancing approximately 4 cm. The findings were sent to the Radiology Results Communication Center at 9:54 am on 10/27/2016to be communicated to a licensed caregiver. D/ / 10/27/2016 10:01:51 Divya Valdivia MD / [email or web address] Interpreting Provider: Divya Valdivia MD
--- NOTE | 2016-11-02 17:54 | Oncology Inp Consult Note ---
Date of Encounter: 11/02/16 Time of Encounter: 17:53 - Data of Consult Requesting Physician: Tracie Carbajal MD Primary Care Provider: Samuel Mary DO - Consult Narrative History of present illness: Ms. Strickland is a 66 year old female seen in consultation for resected colon cancer History of present illness Two-week history of constipation with possible abdominal obstruction symptoms. Abdomen/Pelvis CT 10/22/16 17:20 IMPRESSION: Thickening of the ascending colon which may be inflammatory or neoplastic in etiology. Negative for extravasation of the rectal contrast. Multiloculated fluid collection anterior to the right richard colon with soft tissue stranding suspicious for abscess Enlarged left adrenal gland which has a nodular appearance. MRI the adrenal glands is recommended for further evaluation. Retroperitoneal Abscess Drainage 10/22/16 17:24 Successful placement of catheter CEA low at 0.8 on 10/22/2016 Colonoscopy 10/23/2016 showed 3 mm polyp in the rectum. Projecting malignant tumor in the cecum which was biopsied 10/26/2016 right hemicolectomy: Left adhesions and tumor was easily perforated. Pathology report showed poorly differentiated adenocarcinoma. CK 7 and CK [address] asked to positive Specimen/procedure: Right colon colectomy Tumor location: Tumor involving right colon (see diagnosis comment) Tumor size: 7 cm Gross tumor perforation: Present Histologic type: Poorly differentiated adenocarcinoma Histologic grade: High grade Tumor extension: Invading colon wall and at least pericolonic adipose tissue Proximal and distal margins: Negative; distance = 55 mm (proximal) Circumferential and mesenteric margins: Negative; distance = 30 mm Treatment effect: No prior treatment Lymph-vascular invasion: Focal changes suspicious for lymphovascular invasion seen Perineural invasion: Focal changes consistent with perineural invasion seen Tumor deposits/satellite nodules: Not identified Lymph nodes: Negative (0 /32) AJCC pathologic stage: At least pT3, pN0, pMn/a (see diagnosis comment) Past Med Surg Social Fam HX - Past Medical History Medical history: thyroid disease Psychiatric history: no psych history - Past Surgical History Surgical History: - Social History Smoking Status: Current every day smoker Packs per day: 0.5 Smokeless Tobacco Status: No Alcohol use: none Drug use: none Medications and Allergies Levothyroxine [Synthroid] 88 mcg PO DAILY 10/21/16 [History] Losartan Potassium [Cozaar] 50 mg PO DAILY 10/21/16 [History] Metoprolol Succinate 100 mg PO DAILY 10/21/16 [History] Simvastatin [Zocor] 40 mg PO HS 10/21/16 [History] Amoxicillin/Clavulanate [Augmentin] 875 mg PO BIDWM #10 tablet 10/31/16 [Rx] OxyCODONE/APAP 5/325 [Percocet 5/325 MG] 1 each PO Q4HR PRN #30 tablet 10/31/16 [Rx] Simethicone [Gas Relief] 180 mg PO Q8HR #30 capsule 10/31/16 [Rx] Allergies Sulfa (Sulfonamide Antibiotics) Allergy (Verified 10/21/16 18:29) Swelling of Lip/Tongue/Throat Review of systems: Recovering well from surgery. Denied chest pain terms of breath. No major edema in the lower extremities Oncology - Exam - Constitutional Vitals: Temp Pulse Resp BP Pulse Ox 98.0 F 70 16 133/72 91 L 10/31/16 10:52 10/31/16 10:52 10/31/16 10:52 10/31/16 10:52 10/31/16 10:52 Exam: GENERAL: Alert and oriented, well appearing. Mental Status: Affect appropriate for circumstances HEENT: Sclerae anicteric. No mucositis or thrush. No other oral or pharyngeal lesions or erythema. Skin: No rashes or petechiae. No evidence of skin malignancy Lymph nodes: No cervical, supraclavicular, axillary, or inguinal adenopathy. Lungs: Clear to auscultation and percussion bilaterally. Cardiovascular: Regular rate and rhythm. No gallops, murmurs, or rubs. Abdomen: Soft, bowel sounds sluggish. Mild tenderness. Extremities: No edema. No calf swelling or tenderness. No joint deformity. Neurologic: Alert, cranial nerves II-XII intact; normal gait; no focal weakness or sensory abnormalities. Consult Discharge Plan - Plan Instructions: Oxycodone/Acetaminophen (By mouth), Simethicone (By mouth), Amoxicillin (By mouth), Hypothyroidism (DC), Chronic Hypertension (DC) Referrals: Tracie Carbajal MD [Partnered Physician] - 11/04/16 1:50 pm (call office on wednesday to reschedule for an appt on Nov 11) Samuel Mary DO [Primary Care Provider] - (1-2 weeks; patient will need follow-up MRI to further evaluate the left adrenal gland) Prescriptions: OxyCODONE/APAP 5/325 [Percocet 5/325 MG] 1 each PO Q4HR PRN #30 tablet PRN Reason: Pain Simethicone [Gas Relief] 180 mg PO Q8HR #30 capsule Amoxicillin/Clavulanate [Augmentin] 875 mg PO BIDWM #10 tablet
== END 2016-10-31 16:32 | disposition home or self-care (01) | DRG 329 ==
LOC: 3ANU
PROVIDERS: ADMIT Surgery; ATTEND Surgery
PROC: IRDRAIN (2016-10-22 10:15)
PROC: ENDOCBX (2016-10-23 15:30)

== ENCOUNTER 2017-09-20 06:16 | Inpatient (IN) ==
[2017-09-20] MEDS ORDERED: cefOXitin 2,000 MG in Water for inj. (sterile) 10 ML IVP ONE (06:40)
[2017-09-20] MEDS ORDERED: Plasma-Lyte A (PH 7.4) 1,000 ML IVC SCH (06:45)
[2017-09-20] MEDS ORDERED: Lidocaine -MPF 2% 2 ML VIAL ONE (06:50)
[2017-09-20] MEDS ORDERED: Ondansetron 4 MG/2 ML VIAL ONE (06:50)
[2017-09-20] MEDS ORDERED: Dexamethasone 4 MG/ML VIAL ONE (06:50)
[2017-09-20] MEDS ORDERED: *HR* HYDROmorphone 2 MG/ML SYRINGE ONE (06:50)
[2017-09-20] MEDS ORDERED: *HR* FentaNYL (PF) 100 MCG/2 ML VIAL ONE (06:50)
[2017-09-20] MEDS ORDERED: *HR* Midazolam HCl 2 MG/2 ML VIAL ONE (06:51)
[2017-09-20] MEDS ORDERED: *HR* Propofol 200 MG/20 ML VIAL IVP ONE (06:51)
[2017-09-20] MEDS ORDERED: Ondansetron 4 MG/2 ML VIAL IVP ONE (07:04)
[2017-09-20] MEDS ORDERED: *HR* HYDROmorphone (PF) 1 MG/ML SYRINGE IVP PRN ×3 (07:04→12:16)
--- NOTE | 2017-09-20 07:15 | Anesthesia Evaluation PreOp ---
Date of Encounter: 09/20/17 Time of Encounter: 07:15 - Past History Planned Operation: Exploratory Laparotomy & Excision of Wall Mass Cardiac History: Denies any Significant Hx, HTN, Other (Heart murmur with no significant symptoms.) Pulmonary History: Former smoker (Quit in 10/2016.) ADVISOR CONSULTANT History: Other (Carotid bruit.) Other Medical History: Thyroid (Hypothyroidism.), Other (Hypothyroidism // Colon cancer // Right Hemicolectomy.) Anesthesia History: No Prior Anesthetic Complications : No Test: Negative Alcohol Use: none Drug use: none Medications and Allergies Levothyroxine [Synthroid] 88 mcg PO DAILY 10/21/16 [History] Losartan Potassium [Cozaar] 50 mg PO DAILY 10/21/16 [History] Metoprolol Succinate 100 mg PO DAILY 10/21/16 [History] Simvastatin [Zocor] 40 mg PO HS 10/21/16 [History] Melatonin 5 mg PO HS 02/23/17 [History] Simethicone [Gas Relief] 180 mg PO Q8HR PRN 02/23/17 [History] Polyethylene Glycol 3350 [MiraLAX] 17 gm PO DAILY #1 tub 06/15/17 [Rx] Ergocalciferol (VITAMIN D2) [Vitamin D2] 2,000 unit PO DAILY 09/20/17 [History] 3 Allergy/AdvReac Type Severity Reaction Status Date / Time Sulfa (Sulfonamide Allergy Swelling Verified 09/15/17 14:27 Antibiotics) of Lip/Tongue/Throat lisinopril AdvReac Cough Verified 09/15/17 14:27 - Meds/Allergy Pre-op Review Medications Reviewed: Yes Allergies Reviewed: Yes Beta Blockers on Current Med List: Yes (Took Metoprolol at 4:10 this morning.) If Beta Blockers taken, Date/Time (Last Dose taken): 09/20/2017 at 4:30 am. Anesthesia Results - Labs Labs drawn on 08/30/2017. WBC 7.1 Hgb 14.6 Hct 43.5 PLT 206 Na 140 K 4.4 BUN 15 Creat 0.77 Glucose 80. - Imaging EKG: report reviewed (Sr with VR of 64. 1 degree AV block.) Anesthesia Exam - HEENT Mallampati: II Teeth: Normal - ADVISOR CONSULTANT LOC: Oriented - Cardiac Rhythm: Regular Murmur: Systolic JVD: No Carotid Bruit: No - Pulmonary Breath Sounds: bilateral Clear Anesthesia Assess/Plan ASA Score: 2 Modified [place] Scale for Level of Consciousness: Cooperative, oriented, and tranquil Anesthetic Plan: General Autologous Blood: No Monitoring Plan: Standard Monitors Recovery Plan: PACU
--- NOTE | 2017-09-20 07:27 | History & Physical Report ---
Date of Encounter: 09/20/17 Time of Encounter: 07:30 24 Hour HP Update - Instructions Instructions: If the History and Physical is less than 30 days old and was completed prior to A.M. admission and or procedure and has NOT been updated on calendar day of procedure please complete this update prior to performing procedure. - Update Patient reports changes in Medical Condition: No Changes in examination, assessment, or condition: No Changes in Medication: No Surgery Remains Indicated: Yes Consent for Planned Operative Procedure(s) Verified: Yes - Pre-Operative Checklist Prophylactic Antibiotic Ordered: Yes Home Medications Include Beta Vicky: Yes Is VTE Prophylaxis Indicated?: Yes
--- NOTE | 2017-09-20 08:33 | Operative Note ---
Date of procedure: 09/20/17 Pre-op diagnosis: Right abdominal mass, need for ureteral identification Post-op diagnosis: same Procedure: Cystoscopy, right ureteral stent placement. Implants: 5 Palestinian open-ended catheter. 16 Palestinian Marc catheter. Complications: None. Anesthesia: GAA Surgeon: Musa Gallardo Estimated blood loss (cc): 0 Specimen: none Condition: stable Disposition: PACU Procedure in Detail: Indications: Melida is a 67-year-old woman who is undergoing excision of abdominal mass by Dr. Carbajal. Dr. Carbajal has requested placement of a right ureteral stent to aid in right ureteral identification. She elected to undergo a cystoscopy and right ureteral stent placement. She was aware of the risks of the procedure including but not limited to bleeding, infection, injury to other structures, need for further procedures, stent irritation, need for nephrostomy tube, need for open repair, risks otherwise unforeseen, and the risk of anesthesia. She is willing to proceed. Procedure in Detail: After informed consent was obtained the patient was brought back to the operating room and placed in supine position. A time out was performed. General anesthesia was administered and an endotracheal tube was placed. She was then placed in the frogleg position. She was prepped and draped in the usual sterile fashion. Cystoscopy was performed. The anterior urethra was normal. There was no evidence of bladder tumors. The ureteral orifices were in the normal orthotopic position. There was no duplication of the ureteral orifices. The sensor wire was placed in the right ureteral orifice and was brought into the kidney until resistance was met.. The open-ended catheter was placed over the wire into the kidney. The wire was removed. The scope was removed as well. A Marc catheter was then placed. The stent was passed through the Marc catheter and left into the bag for drainage. At this point Dr. Carbajal took over the surgery.
[2017-09-20] MEDS ORDERED: *HR* Rocuronium Bromide 50 MG/5 ML VIAL ONE (10:05)
[2017-09-20] MEDS ORDERED: Neostigmine Methylsulfate 3 MG/3 ML SYRINGE ONE (10:06)
[2017-09-20] MEDS ORDERED: Ketorolac 30 MG/ML VIAL ONE (11:10)
--- NOTE | 2017-09-20 11:13 | Operative Note ---
Date of procedure: 09/20/17 Pre-op diagnosis: right abdominal wall/peritoneal mass Post-op diagnosis: same Procedure: Exploratory laparotomy, lysis of adhesions 1 hour, small bowel resection, excision right abdominal wall/peritoneal mass Complications: none immediate Anesthesia: GAA Surgeon: Tracie Carbajal Fourdrinier Machine Tender: Shakila Whiteside Estimated blood loss (cc): 25 Urine output (cc): 700 Specimen: see op report Condition: stable Disposition: PACU Procedure in Detail: specimens: small bowel resection, right abdominal wall/peritoneal mass Procedure: Patient was brought to the operating suite and placed supine on the operating table. Sign in was performed and everyone was in agreement. Anesthesia was induced and patient was endotracheally intubated by anesthesia without incident. Marc catheter was placed by urology and a right ureter stent was placed by urology which is dictated separately in a separate operative report. An NG tube was placed by anesthesia. The abdomen was prepped and draped in the usual sterile fashion. Timeout was performed again everyone was in agreement. Midline incision through the skin and the subcutaneous tissue at the previous surgical scar was made with a 15 blade. We dissected through the subcutaneous tissue to the anterior abdominal wall linea alba fascia with the Bovie. A Elizabeth's were placed on either side of the fascia for retraction and the abdomen was entered with the Bovie. There were 2 loops of small bowel that were densely adherent to the abdominal wall inferior to the incision. One small bowel loop was able to be removed from the abdominal wall with gentle blunt dissection and Metzenbaum scissors. The second loop of small bowel was significantly and densely adherent and unable to be removed from the anterior abdominal wall without enterotomy which is not an unexpected result of the procedure. A [id number] 3-0 silk stitch was used to close the enterotomy site. Lysis of adhesions was performed for 1 hour with Metzenbaum scissors and gentle blunt dissection. Once all of the small bowel was freed from adhesions the small bowel was run from the ligament of Treitz down to the terminal ileum. No obvious small bowel metastases or lesions were noted on the small bowel or the mesentery. The ilio colic anastomosis was evaluated and was partially wrapped with omentum. The anastomosis was palpated to be patent and no lesions were noted at the area. An area in the mesentery proximally and distally to the small bowel enterotomy was chosen for resection. An opening in the mesentery just beneath the small bowel proximally and distally was opened with the Bovie. The small bowel proximally and distally was transected with a linear MIGUE-75 stapler blue load 2. The mesentery was transected with the impact LigaSure. The small bowel was then placed off to the back table for pathology. A [id number] small bowel anastomosis was created first with a linear MIGUE-75 stapler blue load forming the common channel. 3-0 silk stitches were used to approximate the common channel opening and this was closed with a 16 mm TL stapler. The end staple line was reinforced with 3-0 silk figure-of- eight stitches. The mesentery was closed with 3-0 silk running stitch. The Bookwalter was placed for retraction and exposure. The mass at the right abdominal wall/peritoneum was located. This mass was firm and densely adherent in the fat of the abdominal wall. Using the Bovie and gentle blunt dissection the mass was excised from the right abdominal wall/peritoneum in a lateral to medial direction and superior to inferior direction. The mass was overlying the right kidney and was easily introitus fascial plane. Once the mass was completely excised medium clips were placed circumferentially to conrado the margins of the tumor excision. The abdomen was irrigated with steri saline. The stomach was palpated and the NG tube was in appropriate position. The peritoneum was palpated and no lesions or metastases were felt. The liver was palpated and no obvious large lesions were felt but there were some granular, the size of the grain of sand areas on the liver but nothing visually obvious. A 10mm CAT drain was placed in the right flank area at the site of the excision and secured to the skin with 2-0 silk stitch. Kockers was placed on either side of the fascia for retraction. The midline fascia was reapproximated with two seperate #1 nonlooped PDS running stitches meeting in the middle. The fascia was copiously irrigated with sterile saline. The subcutaneous tissue was reapproximated with 3-0 Vicryl interrupted stitches. The skin was closed with sunny. 4 x 4 gauze and Medipore tape were applied as a dressing. A drain sponge was placed at the CTA drain site and secured with Medipore tape. The Marc catheter remained with the patient but the stent was removed. NG tube remained with the patient.
--- NOTE | 2017-09-20 11:41 | Anesthesia Evaluation Post Op ---
Date of Encounter: 09/20/17 Time of Encounter: 11:41 - Vital Signs Vital Signs: Vital Signs/O2 Sat, Most Current Temp Pulse Resp BP Pulse Ox 98.9 F 57 16 131/71 93 09/20/17 11:17 09/20/17 11:37 09/20/17 11:37 09/20/17 11:37 09/20/17 11:37 - Lungs Lungs: Clear Ascult./Percussion - Airway Airway: Non-obstructed - Cardiovascular Regular Rate - Mental Status Mental Status: Alert & Oriented, Answers Appropriately - Pain Pain Scale: 0 Pain Scale used: Numeric (1 - 10) - Nausea Vomiting Nausea Vomiting: Not Present - Hydration Hydration: NPO, Marc catheter - Discharge PostOp Status: Transfer Patient to floor
[2017-09-20] MEDS ORDERED: *HR* Promethazine 25 MG/ML VIAL IVP PRN (12:16)
[2017-09-20] MEDS ORDERED: *HR* Metoprolol 5 MG/5 ML VIAL IVP SCH (12:16)
[2017-09-20] MEDS ORDERED: Ondansetron 4 MG/2 ML VIAL IVP PRN (12:16)
[2017-09-20 12:48] LABS: Magnesium 1.8 mg/dL (1.6-2.6); Phosphorous 3.9 mg/dL (2.3-4.7)
[2017-09-20 12:49] LABS: BUN/Creatinine Ratio 15 (6-26); Blood Urea Nitrogen 9 mg/dL (7-20); Calcium 8.9 mg/dL (8.6-10.8); Carbon Dioxide 22 mEq/L (19-29); Chloride 108 mEq/L (98-109); Glucose 174 mg/dL (70-99); Hemoglobin 14.7 g/dL (11.5-15.4); Osmolality,Calculated 293 (280-300); Potassium 4.3 mEq/L (3.5-4.5); Sodium 140 mEq/L (136-145); eGFR For African Americans > 60 (> 60); eGFR For Non-African Americans > 60 (> 60)
[2017-09-20 12:50] LABS: Hematocrit 44.5 % (35.3-44.9); Immature Platelets 16.4 % (1.1-6.1); Mean Corpuscular Hemoglobin 31.1 pg (28.0-33.3); Mean Corpuscular Volume 94.3 fL (83.0-100.0); Mean Platelet Volume 11.8 fL (9.4-12.4); Platelet Count 102 K/mcL (140-400); Red Blood Count 4.72 M/mcL (3.82-4.97); Red Cell Distribution Width 12.5 % (11.5-14.5)
[2017-09-20] MEDS: Levothyroxine Sodium 100 MCG VIAL IVP SCH (13:08)
[2017-09-20] MEDS: 0.9 % Sodium Chloride 1,000 ML IVC SCH (13:08)
[2017-09-20] MEDS: Pantoprazole 40 MG VIAL IVP SCH (13:09)
[2017-09-20 13:44] LABS: Monocytes # 0.6 K/mcL (0.0-1.3); Neutrophils # 13.5 K/mcL (1.6-8.9); Platelet Estimate Slight Decrease (Normal)
[2017-09-20] MEDS: *HR* Metoprolol 5 MG/5 ML VIAL IVP SCH (17:42)
[2017-09-21] MEDS: 0.9 % Sodium Chloride 1,000 ML IVC SCH ×2 (01:05→13:15)
[2017-09-21] MEDS: *HR* Metoprolol 5 MG/5 ML VIAL IVP SCH ×5 (01:05→23:15)
[2017-09-21 06:41] LABS: BUN/Creatinine Ratio 19 (6-26); Blood Urea Nitrogen 12 mg/dL (7-20); Carbon Dioxide 25 mEq/L (19-29); Chloride 109 mEq/L (98-109); Glucose 137 mg/dL (70-99); Osmolality,Calculated 296 (280-300); Potassium 4.1 mEq/L (3.5-4.5); Sodium 142 mEq/L (136-145); eGFR For African Americans > 60 (> 60); eGFR For Non-African Americans > 60 (> 60)
[2017-09-21 06:43] LABS: Basophils % 0.2 %; Hematocrit 40.5 % (35.3-44.9); Hemoglobin 13.6 g/dL (11.5-15.4); Immature Granulocytes % 0.4 % (0-4); Lymphocytes # 1.3 K/mcL (0.6-4.6); Lymphocytes % 10.6 %; Mean Corpuscular HGB Conc 33.6 g/dL (31.6-35.5); Mean Corpuscular Hemoglobin 31.8 pg (28.0-33.3); Mean Corpuscular Volume 94.6 fL (83.0-100.0); Mean Platelet Volume 10.9 fL (9.4-12.4); Monocytes # 1.7 K/mcL (0.0-1.3); Monocytes % 14.1 %; Neutrophils # 9.1 K/mcL (1.6-8.9); Platelet Count 193 K/mcL (140-400); Red Blood Count 4.28 M/mcL (3.82-4.97); Red Cell Distribution Width 12.9 % (11.5-14.5); Segmented Neutrophils % 74.7 %
[2017-09-21] MEDS: *HR* Heparin 5,000 UNIT/ML VIAL SQ SCH ×2 (06:49→18:14)
[2017-09-21] MEDS: Levothyroxine Sodium 100 MCG VIAL IVP SCH (08:30)
[2017-09-21] MEDS: Pantoprazole 40 MG VIAL IVP SCH (08:30)
--- NOTE | 2017-09-21 12:00 | General Surgery Progress Note ---
<Saira Rojas Bernarda - Last Filed: 09/21/17 12:21> Date of Encounter: 09/21/17 Time of Encounter: 11:30 - Assessment and Plan (1) Mass of peritoneum Current Visit: Yes Status: Acute POD #1 Exploratory laparotomy, lysis of adhesions 1 hour, small bowel resection , excision right abdominal wall/peritoneal mass with Dr. Carbajal and right ureteral stent placement per Dr. Gallardo Pathology pending Patient to remain on bowel rest while awaiting return of bowel function NG tube to LIWS IV fludis- 85ml/hour 500ml fluid bolus today Supportive care and pain control- scheduled ofirmev added for the next 48 hours (c/o headache) Continue perkins catheter to SD for strict I&Os Out of bed to chair and ambulate with assistance TID PPI therapy daily IS every 1 hour while await Repeat am labs (2) History of colon cancer Current Visit: Yes Status: Acute s/p Open right colectomy in [facility] [address] Carbajal (3) Hyperlipidemia Current Visit: No Status: Chronic Qualifiers: Hyperlipidemia type: unspecified Qualified Code(s): E78.5 - Hyperlipidemia , unspecified (4) Hypertension Current Visit: No Status: Chronic BP well controlled at this time Continue Metoprolol every 6 hours Will continue to monitor and adjust as necessary Qualifiers: Hypertension type: essential hypertension Qualified Code(s): I10 - Essential (primary) hypertension (5) Hypothyroidism Current Visit: No Status: Chronic IV levothyroxine daily Qualifiers: Hypothyroidism type: unspecified Qualified Code(s): E03.9 - Hypothyroidism , unspecified (6) DVT prophylaxis Current Visit: No Status: Acute Heparin 5,000 units SQ twice daily for DVT prophylaxis Ambulate hallways TID with assistance Subjective Patient reports: still having pain (post surgical pain- controlled), no flatus, no bowel movement, fever (Tmax 99.7 last evening), other (Out of bed to chair and ambulated down hallway this morning with assistance; complaint of headache) Objective Vital Signs - Last 8 Hours Temp Pulse Resp BP Pulse Ox 09/21/17 10:46 98.1 F 75 16 135/73 90 09/21/17 07:23 98.0 F 62 16 144/67 96 Intake and Output 09/20/17 09/21/17 09/21/17 23:59 07:59 15:59 Intake Total 40 / 40 1362 / 1362 Output Total 305 / 305 760 / 760 Balance -265 / -265 602 / 602 Intake: IV Fluids 1362 / 1362 0.9 % Sodium Chloride 1,000 ML 1362 / 1362 @ 85 mls/hr IVC .[id number] [facility] Rx #:[id number] Oral 40 / 40 0 / 0 Output: Urine 0 / 0 0 / 0 Catheter 275 / 275 350 / 350 Gastric Drainage 400 / 400 Wound Drainage Right Abdomen Other: Meal Dinner NPO for breakfast Percent of Meal Consumed 0% Blood Glucose* 125 123 - General physical appearance well developed, well nourished, no distress - Eyes normal ocular movement - ENT dry mucosa, atraumatic, normocephalic - Neck Neck exam: trachea midline - Respiratory normal respiratory effort, clear to auscultation - Cardiovascular Cardiovascular exam: Present: RRR - Abdomen Abdomen: Present: soft, tender (expected post-operative tenderness), wound (NG tube to LIWS with a total of 500ml of drainage since surgery; CAT drain to bulb suction with serousang. drainage noted (100ml noted since surgery)) - Incision Incision: Present: clean and dry, intact - Genitourinary other (perkins catheter to SD with henriquez yellow urine noted (550ml noted since midnight)) - Neurologic CN 2-12 grossly intact - Psychiatric oriented to time, oriented to person, oriented to place, speech is normal, memory intact - Labs 09/21/17 06:03 09/21/17 06:03 Diabetes panel 09/20/17 09/21/17 Range/Units 12:29 06:03 Sodium 140 142 (136-145) mEq/L Potassium 4.3 4.1 (3.5-4.5) mEq/L Chloride 108 109 (98-109) mEq/L Carbon Dioxide 22 25 (19-29) mEq/L BUN 9 12 (7-20) mg/dL Creatinine 0.61 0.64 (0.57-1.11) mg/dL Glucose 174 H 137 H (70-99) mg/dL Calcium 8.9 9.0 (8.6-10.8) mg/dL Calcium panel 09/20/17 09/20/17 09/21/17 Range/Units 12:29 12:29 06:03 Calcium 8.9 9.0 (8.6-10.8) mg/dL Phosphorus 3.9 (2.3-4.7) mg/dL Pituitary panel 09/20/17 09/21/17 Range/Units 12:29 06:03 Sodium 140 142 (136-145) mEq/L Potassium 4.3 4.1 (3.5-4.5) mEq/L Chloride 108 109 (98-109) mEq/L Carbon Dioxide 22 25 (19-29) mEq/L BUN 9 12 (7-20) mg/dL Creatinine 0.61 0.64 (0.57-1.11) mg/dL Glucose 174 H 137 H (70-99) mg/dL Calcium 8.9 9.0 (8.6-10.8) mg/dL Adrenal panel 09/20/17 09/21/17 Range/Units 12:29 06:03 Sodium 140 142 (136-145) mEq/L Potassium 4.3 4.1 (3.5-4.5) mEq/L Chloride 108 109 (98-109) mEq/L Carbon Dioxide 22 25 (19-29) mEq/L BUN 9 12 (7-20) mg/dL Creatinine 0.61 0.64 (0.57-1.11) mg/dL Glucose 174 H 137 H (70-99) mg/dL Calcium 8.9 9.0 (8.6-10.8) mg/dL - VTE Documentation of Mechanical Device: Intermittent pneumatic compression device Consult Discharge Plan - Plan Referrals: Saira Rojas CNP [Advanced Practice Nurse] - 10/07/17 11:00 am Samuel Mary DO [Primary Care Provider] - - Attending Attestation For this encounter, I have reviewed the DENTURE PROCESSOR or PA documentation, treatment plan, and medical decision making; and I have had face to face time with this patient. <Tracie Carbajal - Last Filed: 09/23/17 09:14> Date of Encounter: 09/21/17 - Assessment and Plan (1) DVT prophylaxis Current Visit: Yes Status: Acute (2) Mass of peritoneum Current Visit: Yes Status: Acute await return of bowel function continue ngt to liws ok ice chips, popcicles, iceys continue perkins to monitor uop continue prn pain control OOB to chair await pathology (3) Hypothyroidism Current Visit: Yes Status: Chronic Qualifiers: Hypothyroidism type: unspecified Qualified Code(s): E03.9 - Hypothyroidism , unspecified (4) Hypertension Current Visit: No Status: Chronic Qualifiers: Hypertension type: essential hypertension Qualified Code(s): I10 - Essential (primary) hypertension Subjective Narrative: has surgical pain, is controlled on current regimen no nausea no flatus or bm feels very dry/mouth Objective Vital Signs - Last 8 Hours Temp Pulse Resp BP Pulse Ox 09/23/17 07:39 98.4 F 67 14 133/75 95 09/23/17 03:44 98.2 F 60 12 161/83 94 Intake and Output 09/22/17 09/23/17 09/23/17 23:59 07:59 15:59 Intake Total 240 / 240 1560 / 1560 Output Total 200 / 200 1320 / 1320 300 / 300 Balance 40 / 40 240 / 240 -300 / -300 Intake: IV Fluids 1200 / 1200 0.9 % Sodium Chloride 1,000 ML 1000 / 1000 @ 85 mls/hr IVC .[id number] [facility] Rx #:[id number] Ofirmev 1,000 mg/100 ml 1,000 200 / 200 mg In 100 ml @ 400 mls/hr IVPB Q6H [facility] Rx#:[id number] Oral 240 / 240 360 / 360 Output: Urine 200 / 200 1300 / 1300 300 / 300 Wound Drainage 20 / 20 Right Abdomen 20 / 20 Other: Meal Clears # Voids 1 Weight 82.554 kg Patient Weight 09/23/17 23:59 Weight 82.554 kg - General physical appearance well developed, well nourished, no distress - Eyes normal ocular movement - ENT dry mucosa, normocephalic - Neck Neck exam: trachea midline - Respiratory normal respiratory effort, clear to auscultation - Cardiovascular Cardiovascular exam: Present: RRR, murmurs - Abdomen Abdomen: Present: soft, tender, wound - Incision Incision: Present: clean and dry, intact - Integumentary no growths - Neurologic CN 2-12 grossly intact - Musculoskeletal normal posture - Psychiatric oriented to time, oriented to person, speech is normal, memory intact - Labs 09/23/17 04:50 09/23/17 04:50 Diabetes panel 09/23/17 Range/Units 04:50 Sodium 143 (136-145) mEq/L Potassium 3.4 L (3.5-5.1) mEq/L Chloride 108 H (98-107) mEq/L Carbon Dioxide 25 (23-29) mEq/L BUN 6 L (8-23) mg/dL Creatinine 0.37 L (0.60-1.20) mg/dL Glucose 82 (70-105) mg/dL Calcium 8.5 L (8.6-10.3) mg/dL Calcium panel 09/23/17 Range/Units 04:50 Calcium 8.5 L (8.6-10.3) mg/dL Pituitary panel 09/23/17 Range/Units 04:50 Sodium 143 (136-145) mEq/L Potassium 3.4 L (3.5-5.1) mEq/L Chloride 108 H (98-107) mEq/L Carbon Dioxide 25 (23-29) mEq/L BUN 6 L (8-23) mg/dL Creatinine 0.37 L (0.60-1.20) mg/dL Glucose 82 (70-105) mg/dL Calcium 8.5 L (8.6-10.3) mg/dL Adrenal panel 09/23/17 Range/Units 04:50 Sodium 143 (136-145) mEq/L Potassium 3.4 L (3.5-5.1) mEq/L Chloride 108 H (98-107) mEq/L Carbon Dioxide 25 (23-29) mEq/L BUN 6 L (8-23) mg/dL Creatinine 0.37 L (0.60-1.20) mg/dL Glucose 82 (70-105) mg/dL Calcium 8.5 L (8.6-10.3) mg/dL - Attending Attestation I have personally performed a face to face evaluation on this patient. I have reviewed and agree with the care plan. History and Exam by me shows:
[2017-09-21] MEDS ORDERED: 0.9 % Sodium Chloride 500 ML IVC ONE (12:06)
[2017-09-21] MEDS ORDERED: Acetaminophen IV 1,000 MG/100 ML INFUS..BTL IVPB SCH ×2 (12:15→20:00)
[2017-09-22] MEDS: 0.9 % Sodium Chloride 1,000 ML IVC SCH ×2 (02:25→14:32)
[2017-09-22] MEDS: Acetaminophen IV 1,000 MG/100 ML INFUS..BTL IVPB SCH ×4 (02:25→21:17)
[2017-09-22] MEDS: *HR* Metoprolol 5 MG/5 ML VIAL IVP SCH ×3 (05:24→17:08)
[2017-09-22] MEDS: *HR* Heparin 5,000 UNIT/ML VIAL SQ SCH ×2 (05:24→17:08)
[2017-09-22 06:00] LABS: BUN/Creatinine Ratio 25 (6-26); Blood Urea Nitrogen 11 mg/dL (8-23); Calcium 8.7 mg/dL (8.6-10.3); Carbon Dioxide 24 mEq/L (23-29); Chloride 111 mEq/L (98-107); Glucose 87 mg/dL (70-105); Osmolality,Calculated 293 (280-300); Potassium 3.8 mEq/L (3.5-5.1); Sodium 142 mEq/L (136-145); eGFR For African Americans > 60 (> 60); eGFR For Non-African Americans > 60 (> 60)
[2017-09-22 06:23] LABS: Basophils % 0.5 %; Eosinophils # 0.1 K/mcL (0.0-0.6); Eosinophils % 0.9 %; Hematocrit 37.2 % (35.3-44.9); Hemoglobin 12.4 g/dL (11.5-15.4); Immature Granulocytes % 0.8 % (0-4); Lymphocytes # 1.4 K/mcL (0.6-4.6); Lymphocytes % 17.9 %; Mean Corpuscular HGB Conc 33.3 g/dL (31.6-35.5); Mean Corpuscular Hemoglobin 31.6 pg (28.0-33.3); Mean Corpuscular Volume 94.9 fL (83.0-100.0); Monocytes % 11.9 %; Neutrophils # 5.4 K/mcL (1.6-8.9); Red Blood Count 3.92 M/mcL (3.82-4.97); Red Cell Distribution Width 12.7 % (11.5-14.5)
[2017-09-22 06:28] LABS: Platelet Count 155 K/mcL (140-400)
[2017-09-22] MEDS: Pantoprazole 40 MG VIAL IVP SCH (09:18)
[2017-09-22] MEDS: Levothyroxine Sodium 100 MCG VIAL IVP SCH (09:18)
--- NOTE | 2017-09-22 10:57 | General Surgery Progress Note ---
<Thomas Cisneros - Last Filed: 09/22/17 10:59> Date of Encounter: 09/22/17 Time of Encounter: 10:52 - Assessment and Plan (1) Mass of peritoneum Current Visit: Yes Status: Acute POD #1 Exploratory laparotomy, lysis of adhesions 1 hour, small bowel resection , excision right abdominal wall/peritoneal mass with Dr. Carbajal and right ureteral stent placement per Dr. Gallardo - Pathology pending - Advance diet to clear liquids. recommended to conservatively advance. If belching or abdominal pain occurs, discontinue liquids. - D/C NG tube - D/C perkins. continue strict I&O's - IV fludis- 85ml/hour - Supportive care and pain control-scheduled ofirmev for the next 24 hours (c/o headache) - continue to ambulate w/ assitance TID, and out of bed to chair - PPI therapy Protonix - continue incentive spirometry every 1 hour while await - Repeat am labs (2) History of colon cancer Current Visit: Yes Status: Acute s/p Open right colectomy in [facility] [address]ajal (3) Hyperlipidemia Current Visit: No Status: Chronic managed by PCP Qualifiers: Hyperlipidemia type: unspecified Qualified Code(s): E78.5 - Hyperlipidemia , unspecified (4) Hypertension Current Visit: No Status: Chronic BP well controlled at this time Continue Metoprolol every 6 hours Will continue to monitor and adjust as necessary Qualifiers: Hypertension type: essential hypertension Qualified Code(s): I10 - Essential (primary) hypertension (5) Hypothyroidism Current Visit: Yes Status: Chronic IV levothyroxine daily Qualifiers: Hypothyroidism type: unspecified Qualified Code(s): E03.9 - Hypothyroidism , unspecified (6) DVT prophylaxis Current Visit: Yes Status: Acute Heparin 5,000 units SQ twice daily for DVT prophylaxis Ambulate hallways TID with assistance Subjective Patient reports: no new complaints, feels better, pain is less, flatus, no bowel movement, afebrile Narrative: patient denies headache since yesterday Objective Vital Signs - Last 8 Hours Temp Pulse Resp BP Pulse Ox 09/22/17 10:35 97.9 F 66 16 161/81 95 09/22/17 07:36 97.4 F L 66 14 108/72 92 09/22/17 04:12 98.7 F 74 17 146/77 93 Intake and Output 09/21/17 09/22/17 09/22/17 23:59 07:59 15:59 Intake Total 415 / 415 905 / 905 100 / 100 Output Total 750 / 750 1135 / 1135 300 / 300 Balance -335 / -335 -230 / -230 -200 / -200 Intake: IV Fluids 295 / 295 905 / 905 100 / 100 0.9 % Sodium Chloride 1,000 ML 195 / 195 805 / 805 @ 85 mls/hr IVC .[id number] [facility] Rx #:[id number] Ofirmev 1,000 mg/100 ml 1,000 100 / 100 100 / 100 100 / 100 mg In 100 ml @ 400 mls/hr IVPB Q6H [facility] Rx#:[id number] Oral 120 / 120 0 / 0 Output: Urine 275 / 275 Catheter 450 / 450 350 / 350 300 / 300 Gastric Drainage 300 / 300 500 / 500 0 / 0 Wound Drainage 10 / 10 0 / 0 Right Abdomen 10 / 10 0 / 0 Other: Meal NPO Blood Glucose* 93 86 126 - General physical appearance well developed, well nourished, no distress - Eyes PERRL, normal ocular movement - Respiratory normal expansion, normal respiratory effort, clear to percussion, clear to auscultation - Cardiovascular Cardiovascular exam: Present: RRR Addtional Comments: +2 systolic murmur at R 2nd IC space - Abdomen Abdomen: Present: bowel sounds present, soft, non tender, surgical scars ( midline surgical incision and RLQ lap incision site are non-infectious appearing ). Absent: distended, tender, guarding, rebound, rigid - Neurologic normal coordination, normal sensation - Psychiatric oriented to time, oriented to person, oriented to place, speech is normal, memory intact - Labs 09/22/17 05:01 09/22/17 05:01 Diabetes panel 09/22/17 Range/Units 05:01 Sodium 142 (136-145) mEq/L Potassium 3.8 (3.5-5.1) mEq/L Chloride 111 H (98-107) mEq/L Carbon Dioxide 24 (23-29) mEq/L BUN 11 (8-23) mg/dL Creatinine 0.44 L (0.60-1.20) mg/dL Glucose 87 (70-105) mg/dL Calcium 8.7 (8.6-10.3) mg/dL Calcium panel 09/22/17 Range/Units 05:01 Calcium 8.7 (8.6-10.3) mg/dL Pituitary panel 09/22/17 Range/Units 05:01 Sodium 142 (136-145) mEq/L Potassium 3.8 (3.5-5.1) mEq/L Chloride 111 H (98-107) mEq/L Carbon Dioxide 24 (23-29) mEq/L BUN 11 (8-23) mg/dL Creatinine 0.44 L (0.60-1.20) mg/dL Glucose 87 (70-105) mg/dL Calcium 8.7 (8.6-10.3) mg/dL Adrenal panel 09/22/17 Range/Units 05:01 Sodium 142 (136-145) mEq/L Potassium 3.8 (3.5-5.1) mEq/L Chloride 111 H (98-107) mEq/L Carbon Dioxide 24 (23-29) mEq/L BUN 11 (8-23) mg/dL Creatinine 0.44 L (0.60-1.20) mg/dL Glucose 87 (70-105) mg/dL Calcium 8.7 (8.6-10.3) mg/dL - VTE Documentation of Mechanical Device: Intermittent pneumatic compression device Consult Discharge Plan - Plan Referrals: Saira Rojas CNP [Advanced Practice Nurse] - 10/07/17 11:00 am Samuel Mary DO [Primary Care Provider] - <Tracie Carbajal - Last Filed: 09/23/17 10:58> Date of Encounter: 09/22/17 - Assessment and Plan (1) DVT prophylaxis Current Visit: Yes Status: Acute (2) Mass of peritoneum Current Visit: Yes Status: Acute awaiting pathology dc ngt and start clears as is passing consistent flatus no nausea denies any signficant abdominal pain OOB to chair (3) Hypothyroidism Current Visit: Yes Status: Chronic Qualifiers: Hypothyroidism type: unspecified Qualified Code(s): E03.9 - Hypothyroidism , unspecified (4) Hypertension Current Visit: No Status: Chronic Qualifiers: Hypertension type: essential hypertension Qualified Code(s): I10 - Essential (primary) hypertension Subjective Narrative: passing flatus, no bm no nausea or emesis pain well controlled Objective Vital Signs - Last 8 Hours Temp Pulse Resp BP Pulse Ox 09/23/17 07:39 98.4 F 67 14 133/75 95 09/23/17 03:44 98.2 F 60 12 161/83 94 Intake and Output 09/22/17 09/23/17 09/23/17 23:59 07:59 15:59 Intake Total 240 / 240 1560 / 1560 360 / 360 Output Total 200 / 200 1320 / 1320 300 / 300 Balance 40 / 40 240 / 240 60 / 60 Intake: IV Fluids 1200 / 1200 0.9 % Sodium Chloride 1,000 ML 1000 / 1000 @ 85 mls/hr IVC .[id number] [facility] Rx #:[id number] Ofirmev 1,000 mg/100 ml 1,000 200 / 200 mg In 100 ml @ 400 mls/hr IVPB Q6H [facility] Rx#:[id number] Oral 240 / 240 360 / 360 360 / 360 Output: Urine 200 / 200 1300 / 1300 300 / 300 Wound Drainage Right Abdomen Other: Meal Clears Clear Stool Size Small Stool Consistency formed Stool Color Brown # Voids 1 Weight 82.554 kg Patient Weight 09/23/17 23:59 Weight 82.554 kg - General physical appearance well nourished, no distress - Eyes PERRL, normal ocular movement - ENT normal mucosa, normocephalic - Neck Neck exam: trachea midline - Respiratory normal expansion, clear to auscultation - Abdomen Abdomen: Present: bowel sounds present, soft, tender ( minimal postop tenderness ) - Incision Incision: Present: clean and dry, intact - Integumentary no growths - Neurologic normal coordination, normal sensation - Musculoskeletal normal posture - Psychiatric oriented to time, oriented to person, oriented to place, speech is normal, memory intact - Labs 09/23/17 04:50 09/23/17 04:50 Diabetes panel 09/23/17 Range/Units 04:50 Sodium 143 (136-145) mEq/L Potassium 3.4 L (3.5-5.1) mEq/L Chloride 108 H (98-107) mEq/L Carbon Dioxide 25 (23-29) mEq/L BUN 6 L (8-23) mg/dL Creatinine 0.37 L (0.60-1.20) mg/dL Glucose 82 (70-105) mg/dL Calcium 8.5 L (8.6-10.3) mg/dL Calcium panel 09/23/17 Range/Units 04:50 Calcium 8.5 L (8.6-10.3) mg/dL Pituitary panel 09/23/17 Range/Units 04:50 Sodium 143 (136-145) mEq/L Potassium 3.4 L (3.5-5.1) mEq/L Chloride 108 H (98-107) mEq/L Carbon Dioxide 25 (23-29) mEq/L BUN 6 L (8-23) mg/dL Creatinine 0.37 L (0.60-1.20) mg/dL Glucose 82 (70-105) mg/dL Calcium 8.5 L (8.6-10.3) mg/dL Adrenal panel 09/23/17 Range/Units 04:50 Sodium 143 (136-145) mEq/L Potassium 3.4 L (3.5-5.1) mEq/L Chloride 108 H (98-107) mEq/L Carbon Dioxide 25 (23-29) mEq/L BUN 6 L (8-23) mg/dL Creatinine 0.37 L (0.60-1.20) mg/dL Glucose 82 (70-105) mg/dL Calcium 8.5 L (8.6-10.3) mg/dL - Attending Attestation I examined this patient and my medical decision-making was reviewed with the Resident Physician. I agree with the documented findings, disposition and treatment plan as described except to the extent set forth below.
[2017-09-23] MEDS: *HR* Metoprolol 5 MG/5 ML VIAL IVP SCH ×2 (01:45→06:01)
[2017-09-23] MEDS: Acetaminophen IV 1,000 MG/100 ML INFUS..BTL IVPB SCH (01:46)
[2017-09-23 05:41] LABS: Hematocrit 34.7 % (35.3-44.9); Hemoglobin 11.8 g/dL (11.5-15.4); Mean Corpuscular Hemoglobin 31.4 pg (28.0-33.3); Mean Corpuscular Volume 92.3 fL (83.0-100.0); Platelet Count 145 K/mcL (140-400); Red Blood Count 3.76 M/mcL (3.82-4.97); Red Cell Distribution Width 12.3 % (11.5-14.5)
[2017-09-23] MEDS: *HR* Heparin 5,000 UNIT/ML VIAL SQ SCH (06:01)
[2017-09-23] MEDS: 0.9 % Sodium Chloride 1,000 ML IVC SCH (06:02)
[2017-09-23 06:07] LABS: BUN/Creatinine Ratio 16 (6-26); Blood Urea Nitrogen 6 mg/dL (8-23); Calcium 8.5 mg/dL (8.6-10.3); Carbon Dioxide 25 mEq/L (23-29); Chloride 108 mEq/L (98-107); Glucose 82 mg/dL (70-105); Osmolality,Calculated 293 (280-300); Potassium 3.4 mEq/L (3.5-5.1); Sodium 143 mEq/L (136-145); eGFR For African Americans > 60 (> 60); eGFR For Non-African Americans > 60 (> 60)
[2017-09-23] MEDS: Levothyroxine Sodium 100 MCG VIAL IVP SCH (08:35)
[2017-09-23] MEDS: Pantoprazole 40 MG VIAL IVP SCH (08:35)
[2017-09-23] MEDS ORDERED: *HR* Metoprolol 5 MG/5 ML VIAL IVP PRN (08:43)
[2017-09-23] MEDS ORDERED: Metoprolol XL (24 HR) Succ 50 MG TAB.ER.24H PO SCH (09:00)
[2017-09-23] MEDS ORDERED: *HR* HYDROcodone/Acet 5/325 mg TABLET PO PRN (11:28)
[2017-09-23 11:34] VITALS: BP 136/81
--- NOTE | 2017-09-23 13:39 | Discharge Summary ---
Date of Encounter: 09/23/17 Time of Encounter: 10:00 - Discharge Diagnosis (1) Mass of peritoneum Priority: Primary Status: Acute (2) History of colon cancer Priority: Primary Status: Acute (3) Hypertension Priority: Secondary Status: Chronic Qualifiers: Hypertension type: essential hypertension Qualified Code(s): I10 - Essential (primary) hypertension (4) Hyperlipidemia Priority: Secondary Status: Chronic Qualifiers: Hyperlipidemia type: unspecified Qualified Code(s): E78.5 - Hyperlipidemia , unspecified (5) DVT prophylaxis Priority: Secondary Status: Acute - Discharge Medications Prescriptions: HYDROcodone/Acet 5/325 mg [[place] 5-325 mg] 1 tab PO Q6HR PRN #28 tablet PRN Reason: Pain Docusate Sodium [Colace] 100 mg PO BID PRN #30 capsule PRN Reason: Constipation Ibuprofen 800 mg PO Q8H #42 tablet Home Medications: Levothyroxine [Synthroid] 88 mcg PO DAILY 10/21/16 [History] Losartan Potassium [Cozaar] 50 mg PO DAILY 10/21/16 [History] Metoprolol Succinate 100 mg PO DAILY 10/21/16 [History] Simvastatin [Zocor] 40 mg PO HS 10/21/16 [History] Melatonin 5 mg PO HS 02/23/17 [History] Simethicone [Gas Relief] 180 mg PO Q8HR PRN 02/23/17 [History] Polyethylene Glycol 3350 [MiraLAX] 17 gm PO DAILY #1 tub 06/15/17 [Rx] Ergocalciferol (VITAMIN D2) [Vitamin D2] 2,000 unit PO DAILY 09/20/17 [History] Docusate Sodium [Colace] 100 mg PO BID PRN #30 capsule 09/23/17 [Rx] HYDROcodone/Acet 5/325 mg [[place] 5-325 mg] 1 tab PO Q6HR PRN #28 tablet [Rx] Ibuprofen 800 mg PO Q8H #42 tablet 09/23/17 [Rx] Allergies/Adverse Reactions: 3 Allergy/AdvReac Type Severity Reaction Status Date / Time Sulfa (Sulfonamide Allergy Swelling Verified 09/15/17 14:27 Antibiotics) of Lip/Tongue/Throat lisinopril AdvReac Cough Verified 09/15/17 14:27 General Surgery Exam Initial Vital Signs Temp Pulse Resp BP Pulse Ox 98.0 F 69 18 156/80 95 09/20/17 06:36 09/20/17 06:36 09/20/17 06:36 09/20/17 06:36 09/20/17 06:36 - Additional Findings VITAL SIGNS: Reviewed. GENERAL: In no apparent distress. HEENT: atraumatic, normocephalic, normal occular movements, hearing grossly intact. Oropharynx WNL NECK: No adenopathy, no JVD. CHEST: Chest with clear breath sounds bilaterally. No wheezes, rales, or rhonchi. CARDIAC: Regular rate and rhythm. S1 and S2, without murmurs, gallops, or rubs. VASCULAR: No Edema. Peripheral pulses normal and equal in all extremities. ABDOMEN: Incisions are clean, dry, and intact. There is no ecchymosis visible. There is no S/S of infection noted. Active bowel sounds in all 4 quadrants. Expected postoperative tenderness noted. CAT drain has been DC. MUSCULOSKELETAL: no focal deficits noted. NEUROLOGIC EXAM: Alert and oriented x 3. No focal sensory or strength deficits. Speech normal. Follows commands. PSYCHIATRIC: Pleasant affect. Mood normal. SKIN: No rash or lesions. Date of admission: 09/21/17 12:25 Primary care physician: Samuel Mary DO Discharging clinician: Tracie Carbajal (Chidi Baker) Anticipated date of discharge: 09/23/17 - Patient Status Disposition: Home, Self-Care Condition: Good Functional capacity at discharge: independent ambulation Overall status at discharge: patient is progressing back to baseline - Discharge Instructions Instructions: Colorectal Cancer (GEN), Bowel Resection (DC) Follow Up With: Saira Rojas CNP [Advanced Practice Nurse] - 10/07/17 11:00 am Samuel Mary DO [Primary Care Provider] - Carmela Mahoney MD [Partnered Physician] - (2 weeks) Additional Instructions: General Surgical Discharge Instructions 1. No pushing, pulling, or lifting greater than 15 lbs for 4 weeks (depending upon procedure). 2. You may shower beginning today, but no tub baths, soaking, or swimming for 2 weeks. 3. You may resume driving when you are off narcotics and are safe to react in a car. 4. Take ibuprofen every 8 hours for discomfort. If this does not relieve discomfort, you may take the as needed Percocet. Take narcotics as directed. Do not take more narcotics then directed and do not share your narcotics with any other person. Do not drink alcohol while on narcotics. 5. Take stool softeners (Colace) or a water based laxative (Miralax) while taking narcotics. You may hold for loose stools. 6. Report any fevers greater than 100.5F, increase abdominal discomfort, drainage that looks like pus, increased redness or pain at the surgical site, or any vomiting. 7. Report any pain in the calves, shortness of breath, or rapid heartbeat. 8. Follow-up in the office as directed. 9. If you were prescribed antibiotics, do not stop them without talking to your provider. - Diet and Activity Activity: increase activity as tolerated Diet: other (Soft diet) - Hospital Course Hospital course: Ms. Strickland is a 67 year old female who presented on 09/20/2017 for elective Exploratory laparotomy, lysis of adhesions 1 hour, small bowel resection, excision right abdominal wall/peritoneal mass. [facility] on 2016. Her fully was deseeded on 09/22/2017. Her hospital course has been unremarkable. Of note, her pathology has resulted and is noted below. She is ambulating and voiding without difficulty. She is tolerating a soft diet without nausea or vomiting. She is having bowel movements. She is a febrile and her vital signs are stable. We will begin discharged home with a follow-up in the office in 1 to 2 weeks. She has been given a referral to Dr. Mahoney as this is who she previously followed with. A. Small bowel, partial excision: Benign small bowel with serosal adhesions, negative for malignancy. B. 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 - Time Spent with Patient Total time spent providing and/or coordinating discharge services: Less than 30 minutes Labs on day of discharge: Labs from last 24 hours 09/23/17 09/23/17 04:50 04:50 WBC 5.5 RBC 3.76 L Hgb 11.8 Hct 34.7 L MCV 92.3 MCH 31.4 MCHC 34.0 RDW 12.3 Plt Count 145 MPV 11.0 Sodium 143 Potassium 3.4 L Chloride 108 H Carbon Dioxide 25 BUN 6 L Creatinine 0.37 L Est GFR ( Amer) > 60 Est GFR (Non-Af Amer) > 60 BUN/Creatinine Ratio 16 Glucose 82 Calculated Osmolality 293 Calcium 8.5 L
== END 2017-09-23 15:55 | disposition home or self-care (01) | DRG 331 ==
LOC: SAMDAY 06:16 → 3ANU 12:04
PROVIDERS: ADMIT Surgery; ATTEND Surgery

== ENCOUNTER 2021-01-16 15:17 | Inpatient (IN) ==
[2021-01-16] MEDS ORDERED: 0.9 % Sodium Chloride 500 ML IVC ONE (15:33)
[2021-01-16 16:07] LABS: Bilirubin,Urine Negative (Negative); Blood,Urine Moderate (Negative); Clarity,Urine Clear (Clear); Color,Urine Light-Yellow (Yellow); Glucose,Urine (UA) Normal (Normal); Ketones,Urine 20 mg/dL (Negative); Leukocyte Esterase,Urine Negative (Negative); Mucus,Urine Few per lpf (None-Few); Nitrite,Urine Negative (Negative); Protein,Urine Trace mg/dL (Neg-Trace); Specific Gravity,Urine 1.015 (1.010-1.025); Urobilinogen,Urine Normal (Normal); WBC,Urine 0-3 per hpf (0-3)
[2021-01-16 16:26] LABS: Basophils % 0.3 %; Eosinophils # 0.1 K/mcL (0.0-0.6); Hematocrit 44.7 % (35.3-44.9); Hemoglobin 14.9 g/dL (11.5-15.4); Immature Granulocytes % 0.3 % (0-4); Lymphocytes # 1.8 K/mcL (0.6-4.6); Mean Corpuscular HGB Conc 33.3 g/dL (31.6-35.5); Mean Corpuscular Volume 92.9 fL (83.0-100.0); Mean Platelet Volume 11.6 fL (9.4-12.4); Monocytes # 0.9 K/mcL (0.0-1.3); Monocytes % 15.3 %; Neutrophils # 3.3 K/mcL (1.6-8.9); Platelet Count 186 K/mcL (140-400); Red Blood Count 4.81 M/mcL (3.82-4.97); Red Cell Distribution Width 12.7 % (11.5-14.5); Segmented Neutrophils % 53.1 %; White Blood Count 6.1 K/mcL (4.3-11.1)
[2021-01-16 16:37] LABS: INR 1.2; Prothrombin Time 13.9 Seconds (9.4-12.1)
[2021-01-16 16:40] LABS: Activated Partial Thrombo Time 30.8 Seconds (26.0-36.0)
[2021-01-16 16:47] LABS: BUN/Creatinine Ratio 31 (6-26); Blood Urea Nitrogen 20 mg/dL (8-23); Calcium 10.4 mg/dL (8.6-10.3); Carbon Dioxide 24 mEq/L (23-29); Chloride 102 mEq/L (98-107); Glucose 97 mg/dL (70-105); Osmolality,Calculated 289 (280-300); Sodium 138 mEq/L (136-145); eGFR For African Americans > 60 (> 60); eGFR For Non-African Americans > 60 (> 60)
[2021-01-16 16:55] LABS: Troponin I 0.07 ng/mL (< 0.04)
[2021-01-16] MEDS ORDERED: Aspirin 325 MG TABLET PO ONE (16:59)
[2021-01-16] MEDS ORDERED: *HR* Heparin 5,000 UNIT/ML VIAL IVP ONE (17:00)
[2021-01-16] MEDS ORDERED: *HR* Heparin 5,000 UNIT/ML VIAL IVP PRN ×2 (17:00)
[2021-01-16 17:18] LABS: Heparin anti-factor XA UFH < 0.04 IU/mL (0.30-0.70)
[2021-01-16] MEDS ORDERED: DilTIAZem 50 MG/50 ML IV.SOLN IVC SCH (17:30)
[2021-01-16 17:40] LABS: Thyroid Stimulating Hormone 1.413 mcIU/mL (0.340-5.600)
[2021-01-16] MEDS: Heparin 25,000UNIT/250ML 1/2NS 25,000 UNIT/250 ML IV.SOLN IVC SCH (17:51)
[2021-01-16] MEDS ORDERED: Melatonin 3 MG TABLET PO PRN (17:57)
[2021-01-16] MEDS ORDERED: Naloxone 0.4 MG/ML INJ IVP PRN (17:57)
[2021-01-16] MEDS ORDERED: Ondansetron ODT 4 MG TAB.RAPDIS SL PRN (17:57)
[2021-01-16] MEDS ORDERED: MOM Conc 10 ML UD.LIQ PO PRN (17:57)
[2021-01-16] MEDS ORDERED: Mag Hydrox/Al Hydrox/Simeth 30 ML UDC PO PRN (17:57)
[2021-01-16] MEDS ORDERED: Enoxaparin Weight Dosing SQ ONE (18:01)
[2021-01-16] MEDS: Metoprolol 100 MG TABLET PO SCH (20:24)
[2021-01-17 06:27] LABS: Hematocrit 42.1 % (35.3-44.9); Hemoglobin 14.2 g/dL (11.5-15.4); Immature Platelets 6.8 % (1.1-6.1); Mean Corpuscular HGB Conc 33.7 g/dL (31.6-35.5); Mean Corpuscular Hemoglobin 31.3 pg (28.0-33.3); Mean Corpuscular Volume 92.9 fL (83.0-100.0); Mean Platelet Volume 11.5 fL (9.4-12.4); Red Blood Count 4.53 M/mcL (3.82-4.97); Red Cell Distribution Width 12.6 % (11.5-14.5); White Blood Count 5.2 K/mcL (4.3-11.1)
[2021-01-17] MEDS: Metoprolol 100 MG TABLET PO SCH (08:44)
[2021-01-17 08:50] LABS: Alanine Aminotransferase 11 Units/L (7-52); Albumin/Globulin Ratio 1.5 (1.1-2.2); Alkaline Phosphatase 62 Units/L (34-104); Aspartate Amino Transferase 16 Units/L (13-39); BUN/Creatinine Ratio 28 (6-26); Bilirubin,Total 0.6 mg/dL (0.3-1.0); Blood Urea Nitrogen 15 mg/dL (8-23); Calcium 9.4 mg/dL (8.6-10.3); Carbon Dioxide 23 mEq/L (23-29); Chloride 107 mEq/L (98-107); Chol/HDL Ratio 3.2 (0-4.9); Cholesterol 117 mg/dL (< 200); Globulin 2.6 g/dL (2.4-3.5); Glucose 93 mg/dL (70-105); HDL Cholesterol 37 mg/dL (40-59); LDL Cholesterol,Calculated 65 mg/dL (< 100); Osmolality,Calculated 293 (280-300); Sodium 141 mEq/L (136-145); Total Protein 6.6 g/dL (6.4-8.9); Triglycerides 77 mg/dL (< 150); eGFR For African Americans > 60 (> 60); eGFR For Non-African Americans > 60 (> 60)
[2021-01-17] MEDS: Aspirin Enteric Coated 81 MG Tablet PO SCH (12:54)
[2021-01-17] MEDS: DilTIAZem CD (24hr) 120 MG CAP.ER.24H PO SCH (12:54)
[2021-01-17] MEDS: Heparin 25,000UNIT/250ML 1/2NS 25,000 UNIT/250 ML IV.SOLN IVC SCH (20:25)
[2021-01-18] MEDS ORDERED: Regadenoson 0.4 MG/5 ML SYRINGE IVP ONE (06:54)
[2021-01-18] MEDS: Aspirin Enteric Coated 81 MG Tablet PO SCH (09:40)
[2021-01-18] MEDS: DilTIAZem CD (24hr) 120 MG CAP.ER.24H PO SCH (09:40)
[2021-01-18] MEDS: Metoprolol XL (24 HR) Succ 50 MG TAB.ER.24H PO SCH (09:40)
[2021-01-18] MEDS ORDERED: DilTIAZem CD (24hr) 120 MG CAP.ER.24H PO ONE (12:00)
[2021-01-18] MEDS: Apixaban 5 MG TABLET PO SCH (20:34)
[2021-01-19 02:54] LABS: Hematocrit 44.4 % (35.3-44.9); Hemoglobin 14.4 g/dL (11.5-15.4); Mean Corpuscular HGB Conc 32.4 g/dL (31.6-35.5); Mean Corpuscular Hemoglobin 30.5 pg (28.0-33.3); Mean Corpuscular Volume 94.1 fL (83.0-100.0); Mean Platelet Volume 11.1 fL (9.4-12.4); Platelet Count 212 K/mcL (140-400); Red Blood Count 4.72 M/mcL (3.82-4.97); Red Cell Distribution Width 12.8 % (11.5-14.5); White Blood Count 5.1 K/mcL (4.3-11.1)
[2021-01-19 03:14] LABS: Alanine Aminotransferase 11 Units/L (7-52); Albumin 3.9 g/dL (3.5-5.7); Albumin/Globulin Ratio 1.5 (1.1-2.2); Alkaline Phosphatase 80 Units/L (34-104); Aspartate Amino Transferase 14 Units/L (13-39); BUN/Creatinine Ratio 26 (6-26); Bilirubin,Total 0.3 mg/dL (0.3-1.0); Blood Urea Nitrogen 15 mg/dL (8-23); Calcium 9.3 mg/dL (8.6-10.3); Carbon Dioxide 24 mEq/L (23-29); Chloride 107 mEq/L (98-107); Globulin 2.6 g/dL (2.4-3.5); Glucose 137 mg/dL (70-105); Osmolality,Calculated 291 (280-300); Sodium 139 mEq/L (136-145); Total Protein 6.5 g/dL (6.4-8.9); eGFR For African Americans > 60 (> 60); eGFR For Non-African Americans > 60 (> 60)
[2021-01-19 06:46] VITALS: BP 109/67
[2021-01-19] MEDS: Apixaban 5 MG TABLET PO SCH (08:02)
[2021-01-19] MEDS: Aspirin Enteric Coated 81 MG Tablet PO SCH (08:02)
[2021-01-19] MEDS: Metoprolol XL (24 HR) Succ 50 MG TAB.ER.24H PO SCH (08:02)
[2021-01-19] MEDS ORDERED: DilTIAZem CD (24hr) 240 MG CAP.ER.24H PO SCH (09:00)
== END 2021-01-19 11:45 | disposition home or self-care (01) | DRG 309 ==
LOC: EMEROOARM 15:17 → 3BNU 15:17 → SUATTDRO 18:23 → 3BNU 18:42
PROVIDERS: ADMIT Internal Medicine; ATTEND Registered Nurse